=== PATIENT | female | born 1935 | race Caucasian/White ===

== ENCOUNTER 2017-02-03 14:22 | Emergency (ER) | payer OTHER ==
[~2017-02-03] VITALS: Ht 154.9 cm; Wt 82.2 kg
[~2017-02-03 14:22] MED LIST: ASPI-232 PO; FENT12DI6 TD; FENT25DI2 TD; LORA-741 PO; METO25TA56 PO; SOTA80TA PO
[2017-02-03 14:30] VITALS: TEMP 36.5; Ht 154.9 cm; Wt 82.2 kg
--- NOTE | 2017-02-03 14:52 | EMERGENCY ROOM VISIT NOTE ---
History Report prepared by Bina: David Dudley Under the Supervision of: Dr. Isaiah Padron M.D. First contact with patient: 14:37 Chief Complaint: EYE ASSESSMENT Stated Complaint: EYE, SWOLLEN, RED, PAIN History of Present Illness The patient is a 81 year old female who presents to the Emergency Room with complaints of constant right eye redness and pain starting yesterday afternoon. The patient notes that the pain is worse when she moves her eyeball, and she additionally states that she is having some vision trouble in that eye and eye watering. The patient reports that she was raking her leaves yesterday, and then afterwards it felt like there was sand in her eye, and it got more painful and red. She denies any itching, headaches, numbness, and weakness. She states that she takes aspirin, and she wears glasses though no contacts. The patient notes that she had an eye repair in 2007 in that same eye. She denies any known allergies and history of glaucoma. The patient was seen at [facility] and sent to the ED for evaluation. Source of History: patient Onset: yesterday afternoon Position: eye (right) Quality: other (redness) Timing: constant Modifying Factors (Worsening): other (eye movement) Associated Symptoms: No headache, No weakness, No numbness Review of Systems See HPI for pertinent positives & negatives. A total of 10 systems reviewed and were otherwise negative. Past Medical & Surgical Medical Problems: (1) CKD (chronic kidney disease), stage III (2) Depressive disorder (3) History of basal cell carcinoma (4) History of squamous cell carcinoma (5) HTN (hypertension) (6) Hyperlipidemia (7) Pacemaker (8) Paroxysmal atrial fibrillation (9) Tachy-brenden syndrome Surgical Problems: (1) History of appendectomy (2) History of cataract surgery (3) History of cholecystectomy (4) History of meniscectomy of right knee (5) History of tonsillectomy (6) History of total hysterectomy Old medical records were reviewed. Nurse's notes were reviewed and I agree with. Social History Smoking Status: Never Smoker Marital Status: Housing Status: lives with family Occupation Status: retired Current/Historical Medications Scheduled Aspirin (Aspir-81), 81 MG PO DAILY Atorvastatin (Lipitor), 40 MG PO DAILY Escitalopram (Lexapro), 10 MG PO DAILY Losartan Potassium (Cozaar), 25 MG PO DAILY Metoprolol Tartrate (Lopressor) (Lopressor), 25 MG PO BID Sotalol Hcl (Sotalol Hcl), 80 MG PO BID Scheduled PRN Lorazepam (Ativan), 0.5 MG PO Q6H PRN for Sleep Allergies Coded Allergies: Codeine (Verified Allergy, Severe, ANAPHYLAXIS, 04/27/14) Nitrofurantoin (Verified Allergy, Severe, SWELLING AND HIVES, 04/27/14) Nitroglycerin (Verified Adverse Reaction, Intermediate, SHORTNESS OF BREATH, 04/27/14) VAGAL RESPONSE - MARKED DROP ON BLOOD PRESSURE & HEART RATE, DIAPHORESIS AND "FEELING LIKE PASSING OUT" Physical Exam Vital Signs Date Time Temp Pulse Resp B/P (MAP) Pulse Ox O2 Delivery O2 Flow Rate FiO2 02/03/17 16:35 61 20 140/73 97 02/03/17 14:30 36.5 89 18 125/73 97 Room Air Right Eye Acuity: 20/30 Left Eye Acuity: 20/30 Physical Exam General: Non-ill appearing older female in no acute distress. HEENT: Normal cephalic atraumatic. Diffuse redness and swelling of the conjunctiva on the right. No proptosis, no hyphema, no redness of the lids, no tenderness over the temporal artery. Pupils are equal round and reactive to light. Extraocular movements are intact. Oropharynx is pink with moist mucous membranes. No swelling of the mouth lips or tongue. Neck: Supple with a midline trachea. No meningeal signs or stiffness, no JVD or bruits. No Stridor. Chest: Clear to auscultation bilaterally. No wheezes or rhonchi. No increased work of breathing. Heart: regular rate and rhythm. Abdomen: Soft nontender, nondistended without rebound guarding or rigidity. Extremities: No cyanosis clubbing or edema. No calf tenderness or assymetry Spine/Back. Non tender to palpation. No CVA tenderness Skin: Good turgor without rashes. Neurologic exam: Cranial nerves two through 12 are intact. Motor and sensation are intact and symmetrical throughout. Medical Decision & Procedures Medications Administered Medications (Trade) Dose Ordered Sig/Kyler Route Start Time Stop Time Status Last Admin Dose Admin Tobramycin/ Dexamethasone (Tobradex Oph Susp) 1 drops ONE STAT OP 02/03/17 16:00 02/03/17 16:02 DC 02/03/17 16:00 1 DROPS ED Course 1437: Past medical records reviewed. The patient was evaluated in room B9, and a complete history and physical examination were performed. 1535: Alcaine 0.5% Oph Soln 2 drops OP 1556: I discussed the patient's case with Dr. Dumont, Ophthalmology, and he said to use TobraDex, Zaditor, artificial tears, and a compress. 1600: TobraDex Oph Soln 1 Drop OP 1615: Upon reevaluation, the patient is resting comfortably. I discussed the results and treatment plan with her. She verbalized agreement of the treatment plan. The patient was discharged home. Medical Decision Differentials include, but are not limited to; infection, allergies, glaucoma, abrasion. This patient comes in as described above. She has injection of her right conjunctiva with chemosis. She has normal visual acuity in both eyes . she does not wear contacts. There is no trauma although she was raking leaves yesterday and did get some dust in her eye yesterday. I think this could be more of an allergic chemosis type picture. I did check her intraocular pressure using a puff tonometer and was 11 in both eyes bilaterally and therefore does not have glaucoma. Her pupils are regular I looked at under slit lamp there is no anterior lesions there is no dendritic lesions. I did discuss case with Dr. Crain and he recommends putting on TobraDex 4 times a day which I did and also she can use [id number] antihistamines Zaditor for twice a day as well as use artificial tears and cool compresses. They will follow-up with her Sunday. she's return to the weekend if worsening symptoms, any new problems or concerns. Medication Reconcilliation Current Medication List: was personally reviewed by me Blood Pressure Screening Patient's blood pressure: Normal blood pressure Consults Time Called: 1549 Consulting Physician: Dr. Dumont, Ophthalmology Returned Call: [phone] I discussed the patient's case with Dr. Dumont, Ophthalmology, and he said to use TobraDex, Zaditor, artificial tears, and a compress. Impression Primary Impression: [place] eye Additional Impression: Chemosis Scribe Attestation The scribe's documentation has been prepared under my direction and personally reviewed by me in its entirety. I confirm that the note above accurately reflects all work, treatment, procedures, and medical decision making performed by me. Departure Information Dispostion Home / Self-Care Referrals No Doctor, Assigned (PCP) Forms HOME CARE DOCUMENTATION FORM, IMPORTANT VISIT INFORMATION, WORK / SCHOOL INSTRUCTIONS Patient Instructions My [facility] Additional Instructions Use cool compresses and refrigerated artificial tears as needed Use Tobradex- 1 drop, 4 times a day. Use Zaditor (Over the counter anti-histamine) twice a day Follo-up with Dr. Arora on Sunday for recheck Return if: Increasing pain, worsening of symptoms, fever or chills, any new problems or concerns Problem Qualifiers
[2017-02-03] MEDS ORDERED: LOSA25TA18 PO (15:12)
[2017-02-03] MEDS ORDERED: ESCI10TA17 PO (15:12)
[2017-02-03] MEDS ORDERED: ATOR-24 PO (15:12)
[2017-02-03] MEDS ORDERED: PROPARACAINE HCL 0.5% OP SOLN 15 ML BTL OP STA (15:35)
[2017-02-03] MEDS ORDERED: PROPARACAINE HCL 0.5% OP SOLN 15 ML BTL ONE (15:37)
[2017-02-03] MEDS ORDERED: TOBRAMYCIN/DEXAMETHASONE OPH SUSP 2.5 ML BTL OP STA (16:00)
[2017-02-03 16:35] VITALS: BP 140/73; PULSE 61; O2SAT 97
== END 2017-02-03 16:37 | disposition home or self-care (01) ==
LOC: C.EDB 14:23
DX: H10.021 Other mucopurulent conjunctivitis, right eye (principal); H11.421 Conjunctival edema, right eye; N18.3 Chronic kidney disease, stage 3 (moderate); F32.9 Major depressive disorder, single episode, unspecified; I12.9 Hypertensive chronic kidney disease with stage 1 through stage 4 chronic kidney disease, or unspecified chronic kidney disease; E78.5 Hyperlipidemia, unspecified; Z95.0 Presence of cardiac pacemaker; I48.0 Paroxysmal atrial fibrillation; I49.5 Sick sinus syndrome; Z85.828 Personal history of other malignant neoplasm of skin; Z79.82 Long term (current) use of aspirin; Z79.899 Other long term (current) drug therapy

== ENCOUNTER 2019-01-11 20:06 | Observation (INO) ==
[2019-01-11] MEDS ORDERED: SODIUM CHLORIDE 0.9% 500 ML IV SCH (20:15)
[2019-01-11 20:22] LABS: Basophils # (auto) 0.01 K/uL (0-0.2); Basophils % (auto) 0.1 %; Eosinophils # (auto) 0.08 K/uL (0-0.5); Eosinophils % (auto) 1.2 %; Hematocrit (blood only) 42.4 % (37-47); Hemoglobin 13.8 g/dL (12.0-16.0); Immature Granulocytes # (auto) 0.01 K/uL (0.00-0.02); Immature Granulocytes % (auto) 0.1 %; Lymphocytes # (auto) 1.93 K/uL (1.2-3.4); Lymphocytes % (auto) 28.8 %; Mean Corpuscular Hgb Conc 32.5 g/dL (32-36); Mean Corpuscular Volume 95.3 fL (80-100); Mean Platelet Volume 9.1 fL (7.4-10.4); Monocytes # (auto) 0.64 K/uL (0.11-0.59); Monocytes % (auto) 9.6 %; Neutrophils # (auto) 4.03 K/uL (1.4-6.5); Neutrophils % (auto) 60.2 %; Platelet Count 247 K/uL (130-400); RDW Coefficient of Variation 13.8 % (11.5-14.5); RDW Standard Deviation 48.4 fL (36.4-46.3); Red Blood Count 4.45 M/uL (4.2-5.4)
[2019-01-11 20:34] LABS: Partial Thromboplastin Ratio 0.9; Partial Thromboplastin Time 25.4 Seconds (21.0-31.0); Prothrombin Time 10.3 Seconds (9.0-12.0)
[2019-01-11 20:39] LABS: Alanine Aminotransferase 24 U/L (12-78); Albumin Level 3.4 gm/dl (3.4-5.0); Aspartate Aminotransferase 22 U/L (15-37); BUN Creatinine Ratio 17.5 (10-20); Blood Urea Nitrogen 18 mg/dl (7-18); Calcium 8.8 mg/dl (8.5-10.1); Carbon Dioxide 27 mmol/L (21-32); Chloride 107 mmol/L (98-107); Creatinine Clr Calc Pharmacy 40.2 ml/min; Est GFR (African American) 56.7; Glucose 121 mg/dl (70-99); Magnesium 2.1 mg/dl (1.8-2.4); Potassium 4.2 mmol/L (3.5-5.1); Sodium 140 mmol/L (136-145)
--- NOTE | 2019-01-11 20:39 | XRay Report ---
XR chest 1V portable CLINICAL HISTORY: weakness COMPARISON STUDY: Chest radiograph June 26, 2013. FINDINGS: Lung volumes are normal. Lungs are clear. There is no pneumothorax or pleural effusion. Mod erate cardiomegaly is noted. Mediastinal contours are normal. There is no evidence for pulmonary marjan a. Dual-lead left subclavian pacemaker is unchanged in position. IMPRESSION: 1. No acute cardiopulmonary findings. 2. Moderate cardiomegaly. Electronically signed by: Refugio Cherry M.D. 01/11/2019 8:37 PM
--- NOTE | 2019-01-11 20:42 | Emergency Department Note ---
Entered by Sridhar Samayoa acting as a scribe for History of Present Illness General Chief complaint: Shortness of Breath/Dyspnea Stated complaint: SOB Source: patient Mode of arrival: EMS Limitations: no limitations History of Present Illness Onset (ago): day(s) (today) Location: chest Pain Consistency: + constant Quality: + constant Associated symptoms: + denies other symptoms (breathing problems, walking problems) and + other (diarrhea); no chest pain and no nausea/vomiting Treatments prior to arrival: other (Cardizem) The patient is a 83 year old female who presents to the Emergency Room with complaints of constant palpitations starting earlier today. The patient states Dr. Eid put a pacemaker in her 4 years ago. She states she felt weird last night. She notes she woke up this morning and felt lightheaded. She notes she took her BP and it was very low. She states she started to drink fluids but it did not get any better. She notes her HR went up to 118 and her BP went up. She notes her HR stayed in the 118-128 BPM range. She notes she feels very tired right now. She states she does not have SOB when laying down. The patient denies chest pain, nausea, vomiting, problems walking, and breathing problems. The patient states she was driving all day yesterday. She states she had 5 episodes of diarrhea today but denies any black or bloody stools. She notes the last time she saw Dr. Eid was a month ago. 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 Home Medications Home Medications Medication Instructions Recorded Confirmed Type aspirin [Aspir-81] 81 mg PO DAILY 01/11/19 01/11/19 History atorvastatin [Lipitor] 20 mg PO DAILY 01/11/19 01/11/19 History losartan [Cozaar] 12.5 mg PO DAILY 01/11/19 01/11/19 History metoprolol tartrate [Lopressor] 50 mg PO BID 01/11/19 01/11/19 History sotalol [Betapace] 80 mg PO BID 01/11/19 01/11/19 History Allergies Allergy/AdvReac Type Severity Reaction Status Date / Time codeine Allergy Severe ANAPHYLAXIS Verified 01/11/19 21:03 nitrofurantoin Allergy Severe SWELLING Verified 01/11/19 21:03 AND HIVES nitroglycerin AdvReac Intermediate SHORTNESS Verified 01/11/19 21:03 OF BREATH Past Med/Surg History Medical History HTN (hypertension) (Chronic) Hyperlipidemia (Chronic) Pacemaker (Chronic 06/25/13) "dual chamber pacemaker insertion 06/25/13 Dr. Serrano at [facility]" Tachy-brenden syndrome (Chronic) "s/p dual chamber pacemaker insertion 06/25/13 Dr. Serrano at [facility]" Paroxysmal atrial fibrillation (Chronic) CKD (chronic kidney disease), stage III (Chronic) Depressive disorder (Chronic) History of basal cell carcinoma (Chronic) History of squamous cell carcinoma (Chronic) Surgical History History of tonsillectomy (Chronic) History of appendectomy (Chronic) History of total hysterectomy (Chronic) History of cholecystectomy (Chronic) History of cataract surgery (Chronic) History of meniscectomy of right knee (Chronic) Family History Other Family history non-contributory Social History Preferred Language: Burmese Communication Ability: Effective Cattle Dealer Required: No Beliefs That Will Affect Care: None Current Living Situation: Spouse Other Information That Helps Us Care for You: No Feels Safe at Home: Yes Safety Concerns: Feels Safe At This Time Smoking Status: Never smoker Hx Alcohol Use: Yes Alcohol type: wine Hx Substance Use: No Review of Systems See HPI for pertinent positives & negatives. and A total of 10 systems reviewed and were otherwise negative Physical Exam Vital Signs Vital Signs - 24 hr 01/11/19 20:11 01/11/19 20:15 01/11/19 20:31 Temperature 36.6 C Temperature Source Oral Sepsis Recent Fever Within 48 Hours No Sepsis New/Unexplained Change in Mental Status No Sepsis Action Taken by Nursing No Action Required Pulse Rate 90 98 H Respiratory Rate 20 21 Respiratory Effort / Characteristics Non-Labored Spontaneous Respiratory Depth Normal Respiratory Pattern Regular Blood Pressure 122/80 103/64 Blood Pressure Mean 94 77 Pulse Oximetry 98 97 Oxygen Delivery Method Room Air Room Air Room Air 01/11/19 21:00 01/11/19 21:30 01/11/19 21:47 Temperature Temperature Source Sepsis Recent Fever Within 48 Hours Sepsis New/Unexplained Change in Mental Status Sepsis Action Taken by Nursing Pulse Rate 108 H 114 H 108 H Respiratory Rate 20 19 Respiratory Effort / Characteristics Respiratory Depth Respiratory Pattern Blood Pressure 96/62 L 112/81 Blood Pressure Mean 73 91 Pulse Oximetry 98 98 Oxygen Delivery Method Room Air Room Air 01/11/19 22:00 Temperature Temperature Source Sepsis Recent Fever Within 48 Hours Sepsis New/Unexplained Change in Mental Status Sepsis Action Taken by Nursing Pulse Rate 100 H Respiratory Rate 21 Respiratory Effort / Characteristics Respiratory Depth Respiratory Pattern Blood Pressure 131/82 Blood Pressure Mean 98 Pulse Oximetry 99 Oxygen Delivery Method Room Air GENERAL: The patient is awake and alert. She is somewhat anxious appearing but appears comfortable. EYES: The conjunctivae are clear. The pupils are round and reactive. EARS, NOSE, MOUTH AND THROAT: The nose is without any evidence of any deformity. Mucous membranes are moist.Tongue is midline NECK: The neck is nontender and supple. RESPIRATORY: Normal respiratory effort is noted. There is no evidence of wheez ing rhonchi or rales to auscultation. CARDIOVASCULAR: Tachycardic rate with a regular rhythm was noted. No definite murmur was noted. GASTROINTESTINAL: The abdomen is soft. Bowel sounds are present in all quadrants. Abdomen is nontender. MUSCULOSKELETAL/EXTREMITIES: There is no evidence of gross deformity. Full range of motion is noted in the hips and shoulders. SKIN: There is no obvious evidence of any rash. There are no petechiae, pallor or cyanosis noted. NEUROLOGIC: Patient is awake alert and oriented x3. No drift was noted in the upper extremities. Course 2009: The patient was evaluated in room B2, and a complete history and physical examination were performed. 2039: According to the pacemaker device, the patient has not been in A-Fib since June but has been in A-Fib in the last 72 hours with rapid ventricular response. 2113: I reevaluated the patient. I updated the patient on her labs and imaging results. 2019: I discussed the patient's case with Dr. Tessa Fermin [facility] Hospitalist. He will evaluate the patient for further management Administered Medications Lactated Ringer's (Lr) 1,000 mls @ 200 mls/hr IV .Q5H ONE Stop: 01/12/19 02:38 Last Admin: 01/11/19 21:48 Dose: 200 mls/hr Documented by: [id number] Lorazepam (Ativan) 0.25 mg PO HS PRN PRN Reason: Insomnia Stop: 02/10/19 22:59 Last Admin: 01/11/19 23:54 Dose: 0.25 mg Documented by: [id number] Discontinued Medications Sodium Chloride (Nss) 500 mls @ 999 mls/hr IV .Q31M ZACK Stop: 01/11/19 20:45 Last Infusion: 01/11/19 20:47 Dose: 0 mls/hr Documented by: [id number] Admin: 01/11/19 20:15 Dose: 999 mls/hr Documented by: [id number] Digoxin 250 mcg/ Syringe 10 mls @ 2 mls/min IV ONE ONE Stop: 01/11/19 21:49 Last Admin: 01/11/19 21:47 Dose: 2 mls/min Documented by: [id number] Metoprolol Tartrate (Lopressor) 25 mg PO NOW STA Stop: 01/11/19 22:14 Last Admin: 01/11/19 22:24 Dose: 25 mg Documented by: [id number] Medical Decision Making Differential Diagnosis Differential diagnosis includes etiologies such as premature contractions, electrolyte abnormality, cardiac dysrhythmia, thyroid dysfunction, pulmonary embolism, infection, gastrointestinal, as well as others were entertained. Medical Records Attestation: I reviewed the patient's medical records. Home Medications Current Medication List: was personally reviewed by me Laboratory Data Attestation: I reviewed the patient's lab results. Result diagrams: 01/11/19 20:15 01/11/19 20:15 Lab Results 01/11/19 01/11/19 01/11/19 Range/Units 20:15 20:15 20:15 WBC 6.70 (4.8-10.8) K/uL RBC 4.45 (4.2-5.4) M/uL Hgb 13.8 (12.0-16.0) g/dL Hct 42.4 (37-47) % MCV 95.3 (80-100) fL MCH 31.0 (25-34) pg MCHC 32.5 (32-36) g/dL RDW Std Deviation 48.4 H (36.4-46.3) fL RDW Coeff of Kelli 13.8 (11.5-14.5) % Plt Count 247 (130-400) K/uL MPV 9.1 (7.4-10.4) fL Immature Gran % (Auto) 0.1 % Neut % (Auto) 60.2 % Lymph % (Auto) 28.8 % Woodson % (Auto) 9.6 % Eos % (Auto) 1.2 % Baso % (Auto) 0.1 % Immature Gran # (Auto) 0.01 (0.00-0.02) K/uL Neut # (Auto) 4.03 (1.4-6.5) K/uL Lymph # (Auto) 1.93 (1.2-3.4) K/uL Woodson # (Auto) 0.64 H (0.11-0.59) K/uL Eos # (Auto) 0.08 (0-0.5) K/uL Baso # (Auto) 0.01 (0-0.2) K/uL PT 10.3 (9.0-12.0) Seconds INR 1.0 (0.9-1.1) APTT 25.4 (21.0-31.0) Seconds PTT Ratio 0.9 Sodium 140 (136-145) mmol/L Potassium 4.2 (3.5-5.1) mmol/L Chloride 107 (98-107) mmol/L Carbon Dioxide 27 (21-32) mmol/L Anion Gap 5.0 (3-11) BUN 18 (7-18) mg/dl Creatinine 1.04 (0.6-1.2) mg/dl Est Cr Clr Drug Dosing 40.2 ml/min Est GFR ( Amer) 56.7 Est GFR (Non-Af Amer) 49.0 BUN/Creatinine Ratio 17.5 (10-20) Glucose 121 H (70-99) mg/dl Calcium 8.8 (8.5-10.1) mg/dl Magnesium 2.1 (1.8-2.4) mg/dl Total Bilirubin 0.6 (0.2-1) mg/dl AST 22 (15-37) U/L ALT 24 (12-78) U/L Alkaline Phosphatase 98 (45-117) U/L Troponin I < 0.015 (0-0.045) ng/ml Total Protein 6.8 (6.4-8.2) gm/dl Albumin 3.4 (3.4-5.0) gm/dl Globulin 3.4 (2.5-4.0) gm/dl Albumin/Globulin Ratio 1.0 (0.9-2) TSH 0.795 (0.300-4.500) uIu/ml Urine Color Urine Appearance (Clear) Urine pH (4.5-7.5) Ur Specific [place] (1.000-1.030) Urine Protein (Negative) Urine Glucose (UA) (Negative) Urine Ketones (Negative) Urine Blood (Negative) Urine Nitrite (Negative) Urine Bilirubin (Negative) Urine Urobilinogen (Negative) Ur Leukocyte Esterase (Negative) 01/11/19 Range/Units 20:50 WBC (4.8-10.8) K/uL RBC (4.2-5.4) M/uL Hgb (12.0-16.0) g/dL Hct (37-47) % MCV (80-100) fL MCH (25-34) pg MCHC (32-36) g/dL RDW Std Deviation (36.4-46.3) fL RDW Coeff of Kelli (11.5-14.5) % Plt Count (130-400) K/uL MPV (7.4-10.4) fL Immature Gran % (Auto) % Neut % (Auto) % Lymph % (Auto) % Woodson % (Auto) % Eos % (Auto) % Baso % (Auto) % Immature Gran # (Auto) (0.00-0.02) K/uL Neut # (Auto) (1.4-6.5) K/uL Lymph # (Auto) (1.2-3.4) K/uL Woodson # (Auto) (0.11-0.59) K/uL Eos # (Auto) (0-0.5) K/uL Baso # (Auto) (0-0.2) K/uL PT (9.0-12.0) Seconds INR (0.9-1.1) APTT (21.0-31.0) Seconds PTT Ratio Sodium (136-145) mmol/L Potassium (3.5-5.1) mmol/L Chloride (98-107) mmol/L Carbon Dioxide (21-32) mmol/L Anion Gap (3-11) BUN (7-18) mg/dl Creatinine (0.6-1.2) mg/dl Est Cr Clr Drug Dosing ml/min Est GFR ( Amer) Est GFR (Non-Af Amer) BUN/Creatinine Ratio (10-20) Glucose (70-99) mg/dl Calcium (8.5-10.1) mg/dl Magnesium (1.8-2.4) mg/dl Total Bilirubin (0.2-1) mg/dl AST (15-37) U/L ALT (12-78) U/L Alkaline Phosphatase (45-117) U/L Troponin I (0-0.045) ng/ml Total Protein (6.4-8.2) gm/dl Albumin (3.4-5.0) gm/dl Globulin (2.5-4.0) gm/dl Albumin/Globulin Ratio (0.9-2) TSH (0.300-4.500) uIu/ml Urine Color Yellow Urine Appearance Clear (Clear) Urine pH 7.0 (4.5-7.5) Ur Specific [place] 1.006 (1.000-1.030) Urine Protein Negative (Negative) Urine Glucose (UA) Negative (Negative) Urine Ketones Negative (Negative) Urine Blood Negative (Negative) Urine Nitrite Negative (Negative) Urine Bilirubin Negative (Negative) Urine Urobilinogen Negative (Negative) Ur Leukocyte Esterase Negative (Negative) Imaging Data Radiologist's Impression: Radiology results as stated below per my review and the radiologist's interpretation: XR chest 1V portable CLINICAL HISTORY: weakness COMPARISON STUDY: Chest radiograph June 26, 2013. FINDINGS: Lung volumes are normal. Lungs are clear. There is no pneumothorax or pleural effusion. Moderate cardiomegaly is noted. Mediastinal contours are normal. There is no evidence for pulmonary edema. Dual-lead left subclavian pacemaker is unchanged in position. IMPRESSION: 1. No acute cardiopulmonary findings. 2. Moderate cardiomegaly. Electronically signed by: Refugio Cherry M.D. 01/11/2019 8:37 XR chest 1V portable CLINICAL HISTORY: weakness COMPARISON STUDY: Chest radiograph June 26, 2013. FINDINGS: Lung volumes are normal. Lungs are clear. There is no pneumothorax or pleural effusion. Moderate cardiomegaly is noted. Mediastinal contours are normal. There is no evidence for pulmonary edema. Dual-lead left subclavian pacemaker is unchanged in position. IMPRESSION: 1. No acute cardiopulmonary findings. 2. Moderate cardiomegaly. Electronically signed by: Refugio Cherry M.D. 01/11/2019 8:37 PM ECG Data Attestation: I personally reviewed and interpreted this ECG as follows: Indication: palpitations Rate (beats per minute): 92 Rhythm: atrial fibrillation Findings: + other (ventricular paced beats with fusion beats noted. ) and + T- wave inversion (anteriorly) Comparison ECG Date: from (04/15/14) Change: the following changes noted (Atrial paced rhythm has been replaced with ventricular paced beats) Blood Pressure Blood Pressure Findings: Low blood pressure Blood Pressure Disposition: further management by hospitalist DEION Pulido The patient is an 83-year-old female who presented to the emergency department for an evaluation of palpitations and dyspnea on exertion. The patient has a history of paroxysmal atrial fibrillation and has a pacemaker. She presented to the emergency department with atrial fibrillation and rapid ventricular response. She was treated with Cardizem and IV fluids. She was reevaluated multiple times. I did discuss the patient's laboratory and radiographic studies with her. Her tachycardia improved and she was feeling much better. The patient currently does not take anticoagulation because of a history of bleeding. I discussed the patient's condition with the on-call [facility] hospitalist. Given the extent of her symptoms while she was in rapid atrial fibrillation I do feel she may be a better candidate for inpatient management. I did have the patient's pacemaker interrogated and it does appear that she has had multiple episodes of A. fib with RVR over the last 16 to 20 hours. It appe ars according to her pacemaker that she has not had episodes similar to this since June 2018. Impression & Plan Atrial fibrillation with RVR, LINARES (dyspnea on exertion), Palpitations Discharge Plan Visit Data *Final* Discharge Date/Time: 01/11/19 22:36 Chief Complaint: Shortness of Breath/Dyspnea Stated Complaint: SOB ED Provider: Al Humphrey Discharge Problem: Atrial fibrillation with RVR, LINARES (dyspnea on exertion), Palpitations Patient Disposition: Admitted As Inpatient Discharge Instructions Interventions: ED Discharge Assessment Last Done: 01/11/19 22:36 The scribe's documentation has been prepared under my direction and personally reviewed by me in its entirety. I confirm that the note above accurately reflects all work, treatment, procedures, and medical decision making performed by me.
[2019-01-11 20:49] LABS: Alkaline Phosphatase 98 U/L (45-117); Bilirubin,Total 0.6 mg/dl (0.2-1); Globulin 3.4 gm/dl (2.5-4.0); Thyroid Stimulating Hormone 0.795 uIu/ml (0.300-4.500); Total Protein 6.8 gm/dl (6.4-8.2); Troponin I < 0.015 ng/ml (0-0.045)
[2019-01-11 21:07] LABS: Appearance Urine Clear (Clear); Bilirubin Urine Negative (Negative); Blood Urine Negative (Negative); Color Urine Yellow; Glucose Urine UA Negative (Negative); Ketones Urine Negative (Negative); Leukocyte Esterase Urine Negative (Negative); Nitrite Urine Negative (Negative); Protein Urine Negative (Negative); Specific Gravity Urine 1.006 (1.000-1.030); Urobilinogen Urine Negative (Negative)
[2019-01-11] MEDS ORDERED: LACTATED RINGER'S 1,000 ML IV ONE (21:39)
[2019-01-11] MEDS ORDERED: DIGOXIN 250 MCG in SYRINGE 9 ML IV ONE (21:45)
--- NOTE | 2019-01-11 22:10 | History & Physical Report ---
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 difficile Anxiety hypertension, erratic BP at home hyperlipidemia on statin Rx OBS PCU Facilitate home Sotalol and Lopressor meds, titrate Lopressor IVF, stool C. difficile Anxiolytic as needed Update TTE, Cardiology consult RE recurrent A. fib DVT prophylaxis. Lovenox subcu Full code History of Present Illness Chief Complaint: -Palpitations Primary Care Provider: Eddie Graves MD History obtained from patient, family, and records. 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 Recent confinement April 2014 under [facility] service for lumbar spine laminectomy. Last night patient noted palpitations around bedtime, feeling lightheaded, S OB on exertion. No chest pain, no cough symptoms. Patient compliant with home cardiac medications. SBP somewhat low last night in the 90s as per patient. Patient unable to sleep. 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 This morning patient had watery diarrhea, with nausea, no emesis, no abdominal pain. No fever, no chills. No known sick contacts, recent travel, or recent antibiotic Rx. SBP is higher than usual at home 170- 180s as per patient At the ER, patient noted to be in rapid A. fib. Cardiac rate 115. Medical History as above Surgical History : Neck surgery, knee surgery, PPM, appendectomy, tonsillectomy, cataract surgery, cholecystectomy, hysterectomy Family History : Breast cancer, diabetes, heart disease, stroke Personal/Social history : Non-smoker, no EtOH intake, retired businesswoman Allergies Allergy/AdvReac Type Severity Reaction Status Date / Time codeine Allergy Severe ANAPHYLAXIS Verified 01/11/19 21:03 nitrofurantoin Allergy Severe SWELLING Verified 01/11/19 21:03 AND HIVES nitroglycerin AdvReac Intermediate SHORTNESS Verified 01/11/19 21:03 OF BREATH Home Medications Home Medications Medication Instructions Recorded Confirmed Type aspirin [Aspir-81] 81 mg PO DAILY 01/11/19 01/11/19 History atorvastatin [Lipitor] 20 mg PO DAILY 01/11/19 01/11/19 History losartan [Cozaar] 12.5 mg PO DAILY 01/11/19 01/11/19 History metoprolol tartrate [Lopressor] 50 mg PO BID 01/11/19 01/11/19 History sotalol [Betapace] 80 mg PO BID 01/11/19 01/11/19 History Past Med/Surg History Medical History HTN (hypertension) (Chronic) Hyperlipidemia (Chronic) Pacemaker (Chronic 06/25/13) "dual chamber pacemaker insertion 06/25/13 Dr. Serrano at [facility]" Tachy-brenden syndrome (Chronic) "s/p dual chamber pacemaker insertion 06/25/13 Dr. Serrano at [facility]" Paroxysmal atrial fibrillation (Chronic) CKD (chronic kidney disease), stage III (Chronic) Depressive disorder (Chronic) History of basal cell carcinoma (Chronic) History of squamous cell carcinoma (Chronic) Surgical History History of tonsillectomy (Chronic) History of appendectomy (Chronic) History of total hysterectomy (Chronic) History of cholecystectomy (Chronic) History of cataract surgery (Chronic) History of meniscectomy of right knee (Chronic) Family History Other Family history non-contributory Social History Preferred Language: Croatian Communication Ability: Effective Making Department Preparer Required: No Beliefs That Will Affect Care: None Current Living Situation: Spouse Other Information That Helps Us Care for You: No Feels Safe at Home: Yes Safety Concerns: Feels Safe At This Time Smoking Status: Never smoker Hx Alcohol Use: Yes Alcohol type: wine Hx Substance Use: No Review of Systems Review of Systems: As per HPI, all 10 systems reviewed, all other ROS negative Physical Exam Physical Exam: GENERAL: Comfortable, obese, slightly anxious, no respiratory distress SKIN: Normal color, warm HEENT: [place] palpebral conjunctivae, no ptosis, dry buccal mucosa NECK : Supple, short neck, no tenderness CHEST : CTA, no tenderness HEART : Tachycardic, irregular, systolic murmur ABDOMEN: Some distention, nontender EXTREMITIES : No LE swelling/tenderness, no other conspicuous deformities noted NEUROLOGIC : Coherent, no facial asymmetry, no other gross focality Results & Data Vital Signs (Past 12 Hours) Vital Signs Temp Pulse Resp BP Pulse Ox 01/11/19 22:00 100 H 21 131/82 99 01/11/19 21:47 108 H 01/11/19 21:30 114 H 19 112/81 98 01/11/19 21:00 108 H 20 96/62 L 98 01/11/19 20:31 98 H 21 103/64 97 01/11/19 20:15 36.6 C 90 20 122/80 98 Laboratory Results Laboratory Results WBC 6.70 K/uL (4.8-10.8) 01/11/19 20:15 RBC 4.45 M/uL (4.2-5.4) 01/11/19 20:15 Hgb 13.8 g/dL (12.0-16.0) 01/11/19 20:15 Hct 42.4 % (37-47) 01/11/19 20:15 MCV 95.3 fL (80-100) 01/11/19 20:15 MCH 31.0 pg (25-34) 01/11/19 20:15 MCHC 32.5 g/dL (32-36) 01/11/19 20:15 RDW Std Deviation 48.4 fL (36.4-46.3) H 01/11/19 20:15 RDW Coeff of Kelli 13.8 % (11.5-14.5) 01/11/19 20:15 Plt Count 247 K/uL (130-400) 01/11/19 20:15 MPV 9.1 fL (7.4-10.4) 01/11/19 20:15 Immature Gran % (Auto) 0.1 % 01/11/19 20:15 Neut % (Auto) 60.2 % 01/11/19 20:15 Lymph % (Auto) 28.8 % 01/11/19 20:15 [place] % (Auto) 9.6 % 01/11/19 20:15 Eos % (Auto) 1.2 % 01/11/19 20:15 Baso % (Auto) 0.1 % 01/11/19 20:15 Immature Gran # (Auto) 0.01 K/uL (0.00-0.02) 01/11/19 20:15 Neut # (Auto) 4.03 K/uL (1.4-6.5) 01/11/19 20:15 Lymph # (Auto) 1.93 K/uL (1.2-3.4) 01/11/19 20:15 [place] # (Auto) 0.64 K/uL (0.11-0.59) H 01/11/19 20:15 Eos # (Auto) 0.08 K/uL (0-0.5) 01/11/19 20:15 Baso # (Auto) 0.01 K/uL (0-0.2) 01/11/19 20:15 PT 10.3 Seconds (9.0-12.0) 01/11/19 20:15 INR 1.0 (0.9-1.1) 01/11/19 20:15 APTT 25.4 Seconds (21.0-31.0) 01/11/19 20:15 PTT Ratio 0.9 01/11/19 20:15 Sodium 140 mmol/L (136-145) 01/11/19 20:15 Potassium 4.2 mmol/L (3.5-5.1) 01/11/19 20:15 Chloride 107 mmol/L (98-107) 01/11/19 20:15 Carbon Dioxide 27 mmol/L (21-32) 01/11/19 20:15 Anion Gap 5.0 (3-11) 01/11/19 20:15 BUN 18 mg/dl (7-18) 01/11/19 20:15 Creatinine 1.04 mg/dl (0.6-1.2) 01/11/19 20:15 Est Cr Clr Drug Dosing 40.2 ml/min 01/11/19 20:15 Est GFR ( Amer) 56.7 01/11/19 20:15 Est GFR (Non-Af Amer) 49.0 01/11/19 20:15 BUN/Creatinine Ratio 17.5 (10-20) 01/11/19 20:15 Glucose 121 mg/dl (70-99) H 01/11/19 20:15 Calcium 8.8 mg/dl (8.5-10.1) 01/11/19 20:15 Magnesium 2.1 mg/dl (1.8-2.4) 01/11/19 20:15 Total Bilirubin 0.6 mg/dl (0.2-1) 01/11/19 20:15 AST 22 U/L (15-37) 01/11/19 20:15 ALT 24 U/L (12-78) 01/11/19 20:15 Alkaline Phosphatase 98 U/L (45-117) 01/11/19 20:15 Troponin I < 0.015 ng/ml (0-0.045) 01/11/19 20:15 Total Protein 6.8 gm/dl (6.4-8.2) 01/11/19 20:15 Albumin 3.4 gm/dl (3.4-5.0) 01/11/19 20:15 Globulin 3.4 gm/dl (2.5-4.0) 01/11/19 20:15 Albumin/Globulin Ratio 1.0 (0.9-2) 01/11/19 20:15 TSH 0.795 uIu/ml (0.300-4.500) 01/11/19 20:15 Urine Color Yellow 01/11/19 20:50 Urine Appearance Clear (Clear) 01/11/19 20:50 Urine pH 7.0 (4.5-7.5) 01/11/19 20:50 Ur Specific [place] 1.006 (1.000-1.030) 01/11/19 20:50 Urine Protein Negative (Negative) 01/11/19 20:50 Urine Glucose (UA) Negative (Negative) 01/11/19 20:50 Urine Ketones Negative (Negative) 01/11/19 20:50 Urine Blood Negative (Negative) 01/11/19 20:50 Urine Nitrite Negative (Negative) 01/11/19 20:50 Urine Bilirubin Negative (Negative) 01/11/19 20:50 Urine Urobilinogen Negative (Negative) 01/11/19 20:50 Ur Leukocyte Esterase Negative (Negative) 01/11/19 20:50 Diagnostic Findings Chest x-ray : Moderate cardiomegaly EKG as per my interpretation : Rate 90, paced rhythm
[2019-01-11] MEDS ORDERED: METOPROLOL TARTRATE 50 MG TAB PO STA (22:13)
[2019-01-11] MEDS ORDERED: LORazepam 0.25 MG/0.5 ML VIAL IV PRN (23:00)
[2019-01-11] MEDS ORDERED: PROMETHAZINE HCL 12.5 MG in SODIUM CHLORIDE 0.9% 50 ML IV PRN (23:00)
[2019-01-11] MEDS ORDERED: LORazepam 0.5 MG TAB PO PRN (23:00)
[2019-01-11] MEDS ORDERED: ACETAMINOPHEN 325 MG TAB PO PRN (23:00)
[2019-01-11] MEDS ORDERED: TRAMADOL HCL 50 MG TABLET PO PRN (23:00)
[2019-01-12 05:47] LABS: Basophils # (auto) 0.01 K/uL (0-0.2); Basophils % (auto) 0.2 %; Eosinophils # (auto) 0.08 K/uL (0-0.5); Eosinophils % (auto) 1.2 %; Hematocrit (blood only) 37.9 % (37-47); Hemoglobin 12.4 g/dL (12.0-16.0); Immature Granulocytes # (auto) 0.01 K/uL (0.00-0.02); Immature Granulocytes % (auto) 0.2 %; Lymphocytes # (auto) 2.42 K/uL (1.2-3.4); Lymphocytes % (auto) 37.1 %; Mean Corpuscular Hemoglobin 30.8 pg (25-34); Mean Corpuscular Hgb Conc 32.7 g/dL (32-36); Mean Corpuscular Volume 94.3 fL (80-100); Mean Platelet Volume 8.7 fL (7.4-10.4); Monocytes # (auto) 0.54 K/uL (0.11-0.59); Monocytes % (auto) 8.3 %; Neutrophils # (auto) 3.46 K/uL (1.4-6.5); Platelet Count 220 K/uL (130-400); RDW Coefficient of Variation 13.7 % (11.5-14.5); RDW Standard Deviation 47.2 fL (36.4-46.3); Red Blood Count 4.02 M/uL (4.2-5.4); White Blood Count 6.52 K/uL (4.8-10.8)
[2019-01-12 05:56] LABS: Partial Thromboplastin Ratio 0.9; Partial Thromboplastin Time 25.4 Seconds (21.0-31.0)
[2019-01-12 06:30] LABS: BUN Creatinine Ratio 17.5 (10-20); Calcium 8.6 mg/dl (8.5-10.1); Creatinine Clr Calc Pharmacy 46.6 ml/min; Est GFR (African American) 66.7; Est GFR (Non-African American) 57.5; Potassium 4.2 mmol/L (3.5-5.1)
--- NOTE | 2019-01-12 07:31 | Hospitalist Progress Note ---
Date of Service January 12, 2019 Assessment & Plan (1) Atrial fibrillation with RVR: Hx of SSS s/p PPM not on anticoagulation secondary to history of rectus sheath hematoma TSH wnl K, Mg wnl Echo - right atrium is markedly dilated, so is left atrium, EF 60 to 65%, RV systolic function normal, LV systolic function normal, moderate mitral regurg. Cardiology consulted, started dilt drip, and IV heparin, cont. home sotalol - rate much better controlled now - cont. to closely monitor - discussed risks/benefits of anticoagulation vs. holding ac (2) HTN (hypertension): No current issues HTN at goal, in the setting of Afib will cont. to monitor closely (3) Hyperlipidemia: Cont. home atorvastatin (4) Depressive disorder: Pt is anxious and teary, says she always "has to take care of everything" -takes care of her -no chronic meds/ or therapy -at this time not interested in talking to a professional, says talking w/daughter and sister helps -consider psychotherapy as outpt -will cont. to monitor, prn med management (5) DVT prophylaxis: - currently on IV heparin (for Afib) Code status: Full code Subjective Patient is sitting up in bed, in no acute distress, comfortable however she feels little anxious/teary. Denies any chest pain, palpitations, d izziness/lightheadedness, shortness of breath. She says that she felt very lightheaded when she first arrived to the hospital however that has since resolved. She also denies any fevers, chills, nausea, vomiting,recent illness. Review of Systems Constitutional: no fever and no chills Respiratory: no cough and no dyspnea Cardiovascular: no chest pain and no palpitations Gastrointestinal: no abdominal pain, no nausea and no vomiting Psychiatric: + anxiety Physical Exam Physical Exam: Elderly female sitting up in bed, in no acute distress Constitutional: well developed and well nourished; no acute distress Eyes: PERRL, conjunctivae normal, anicteric sclerae ENMT: external ear and nose normal, oropharynx normal Neck: Supple, no JVD Respiratory: normal respiratory effort, lungs clear to auscultation Auscultation: no crackles, no rhonchi and no wheezes Cardiovascular: Heart Sounds: no gallop and no murmur Irregularly irregular Chest (Breasts): Chest: normal inspection of chest Gastrointestinal (Abdomen): Inspection/Auscultation: abdomen normal to inspection and normal bowel sounds; abdomen not distended Percussion/Palpation: abdomen soft; abdomen nontender Musculoskeletal: Head/Neck/Chest: normocephalic and head atraumatic Extremities: extremities normal to inspection Skin: no rashes, warm and dry Neurologic: PERRL, EOMI, accommodation nl, no face palsy, no dysarthria Psychiatric: Orientation: alert and oriented x 3 Speech: normal rate/rhythm/volume of speech Affect: + anxious affect Genitourinary: no CVA tenderness Lymphatic: no lymphedema and no cervical lymphadenopathy Results & Data Vital Signs (Past 12 Hours) Vital Signs Temp Pulse Pulse Resp BP BP BP 01/12/19 06:22 36.5 C 110 H 20 119/73 01/12/19 03:49 36.7 C 100 H 20 107/72 01/11/19 23:00 01/11/19 22:50 36.4 C L 85 20 142/85 H 01/11/19 22:00 100 H 21 131/82 01/11/19 21:47 108 H 01/11/19 21:30 114 H 19 112/81 01/11/19 21:00 108 H 20 96/62 L 01/11/19 20:31 98 H 21 103/64 01/11/19 20:15 36.6 C 90 20 122/80 Pulse Ox Pulse Ox 01/12/19 06:22 97 01/12/19 03:49 97 01/11/19 23:00 98 01/11/19 22:50 98 01/11/19 22:00 99 01/11/19 21:47 01/11/19 21:30 98 01/11/19 21:00 98 01/11/19 20:31 97 01/11/19 20:15 98 Laboratory Results 01/12/19 01/12/19 01/12/19 Range/Units 05:31 05:31 05:31 WBC 6.52 (4.8-10.8) K/uL RBC 4.02 L (4.2-5.4) M/uL Hgb 12.4 (12.0-16.0) g/dL Hct 37.9 (37-47) % MCV 94.3 (80-100) fL MCH 30.8 (25-34) pg MCHC 32.7 (32-36) g/dL RDW Std Deviation 47.2 H (36.4-46.3) fL RDW Coeff of Kelli 13.7 (11.5-14.5) % Plt Count 220 (130-400) K/uL MPV 8.7 (7.4-10.4) fL Immature Gran % (Auto) 0.2 % Neut % (Auto) 53.0 % Lymph % (Auto) 37.1 % [place] % (Auto) 8.3 % Eos % (Auto) 1.2 % Baso % (Auto) 0.2 % Immature Gran # (Auto) 0.01 (0.00-0.02) K/uL Neut # (Auto) 3.46 (1.4-6.5) K/uL Lymph # (Auto) 2.42 (1.2-3.4) K/uL [place] # (Auto) 0.54 (0.11-0.59) K/uL Eos # (Auto) 0.08 (0-0.5) K/uL Baso # (Auto) 0.01 (0-0.2) K/uL PT (9.0-12.0) Seconds INR (0.9-1.1) APTT 25.4 (21.0-31.0) Seconds PTT Ratio 0.9 Sodium 143 (136-145) mmol/L Potassium 4.2 (3.5-5.1) mmol/L Chloride 110 H (98-107) mmol/L Carbon Dioxide 30 (21-32) mmol/L Anion Gap 3.0 (3-11) BUN 16 (7-18) mg/dl Creatinine 0.91 (0.6-1.2) mg/dl Est Cr Clr Drug Dosing 46.6 ml/min Est GFR ( Amer) 66.7 Est GFR (Non-Af Amer) 57.5 BUN/Creatinine Ratio 17.5 (10-20) Glucose 98 (70-99) mg/dl Calcium 8.6 (8.5-10.1) mg/dl Magnesium (1.8-2.4) mg/dl Total Bilirubin (0.2-1) mg/dl AST (15-37) U/L ALT (12-78) U/L Alkaline Phosphatase (45-117) U/L Troponin I (0-0.045) ng/ml Total Protein (6.4-8.2) gm/dl Albumin (3.4-5.0) gm/dl Globulin (2.5-4.0) gm/dl Albumin/Globulin Ratio (0.9-2) TSH (0.300-4.500) uIu/ml Urine Color Urine Appearance (Clear) Urine pH (4.5-7.5) Ur Specific [place] (1.000-1.030) Urine Protein (Negative) Urine Glucose (UA) (Negative) Urine Ketones (Negative) Urine Blood (Negative) Urine Nitrite (Negative) Urine Bilirubin (Negative) Urine Urobilinogen (Negative) Ur Leukocyte Esterase (Negative) 01/11/19 01/11/19 01/11/19 Range/Units 20:50 20:15 20:15 WBC (4.8-10.8) K/uL RBC (4.2-5.4) M/uL Hgb (12.0-16.0) g/dL Hct (37-47) % MCV (80-100) fL MCH (25-34) pg MCHC (32-36) g/dL RDW Std Deviation (36.4-46.3) fL RDW Coeff of Kelli (11.5-14.5) % Plt Count (130-400) K/uL MPV (7.4-10.4) fL Immature Gran % (Auto) % Neut % (Auto) % Lymph % (Auto) % [place] % (Auto) % Eos % (Auto) % Baso % (Auto) % Immature Gran # (Auto) (0.00-0.02) K/uL Neut # (Auto) (1.4-6.5) K/uL Lymph # (Auto) (1.2-3.4) K/uL [place] # (Auto) (0.11-0.59) K/uL Eos # (Auto) (0-0.5) K/uL Baso # (Auto) (0-0.2) K/uL PT 10.3 (9.0-12.0) Seconds INR 1.0 (0.9-1.1) APTT 25.4 (21.0-31.0) Seconds PTT Ratio 0.9 Sodium 140 (136-145) mmol/L Potassium 4.2 (3.5-5.1) mmol/L Chloride 107 (98-107) mmol/L Carbon Dioxide 27 (21-32) mmol/L Anion Gap 5.0 (3-11) BUN 18 (7-18) mg/dl Creatinine 1.04 (0.6-1.2) mg/dl Est Cr Clr Drug Dosing 40.2 ml/min Est GFR ( Amer) 56.7 Est GFR (Non-Af Amer) 49.0 BUN/Creatinine Ratio 17.5 (10-20) Glucose 121 H (70-99) mg/dl Calcium 8.8 (8.5-10.1) mg/dl Magnesium 2.1 (1.8-2.4) mg/dl Total Bilirubin 0.6 (0.2-1) mg/dl AST 22 (15-37) U/L ALT 24 (12-78) U/L Alkaline Phosphatase 98 (45-117) U/L Troponin I < 0.015 (0-0.045) ng/ml Total Protein 6.8 (6.4-8.2) gm/dl Albumin 3.4 (3.4-5.0) gm/dl Globulin 3.4 (2.5-4.0) gm/dl Albumin/Globulin Ratio 1.0 (0.9-2) TSH 0.795 (0.300-4.500) uIu/ml Urine Color Yellow Urine Appearance Clear (Clear) Urine pH 7.0 (4.5-7.5) Ur Specific [place] 1.006 (1.000-1.030) Urine Protein Negative (Negative) Urine Glucose (UA) Negative (Negative) Urine Ketones Negative (Negative) Urine Blood Negative (Negative) Urine Nitrite Negative (Negative) Urine Bilirubin Negative (Negative) Urine Urobilinogen Negative (Negative) Ur Leukocyte Esterase Negative (Negative) 01/11/19 Range/Units 20:15 WBC 6.70 (4.8-10.8) K/uL RBC 4.45 (4.2-5.4) M/uL Hgb 13.8 (12.0-16.0) g/dL Hct 42.4 (37-47) % MCV 95.3 (80-100) fL MCH 31.0 (25-34) pg MCHC 32.5 (32-36) g/dL RDW Std Deviation 48.4 H (36.4-46.3) fL RDW Coeff of Kelli 13.8 (11.5-14.5) % Plt Count 247 (130-400) K/uL MPV 9.1 (7.4-10.4) fL Immature Gran % (Auto) 0.1 % Neut % (Auto) 60.2 % Lymph % (Auto) 28.8 % [place] % (Auto) 9.6 % Eos % (Auto) 1.2 % Baso % (Auto) 0.1 % Immature Gran # (Auto) 0.01 (0.00-0.02) K/uL Neut # (Auto) 4.03 (1.4-6.5) K/uL Lymph # (Auto) 1.93 (1.2-3.4) K/uL [place] # (Auto) 0.64 H (0.11-0.59) K/uL Eos # (Auto) 0.08 (0-0.5) K/uL Baso # (Auto) 0.01 (0-0.2) K/uL PT (9.0-12.0) Seconds INR (0.9-1.1) APTT (21.0-31.0) Seconds PTT Ratio Sodium (136-145) mmol/L Potassium (3.5-5.1) mmol/L Chloride (98-107) mmol/L Carbon Dioxide (21-32) mmol/L Anion Gap (3-11) BUN (7-18) mg/dl Creatinine (0.6-1.2) mg/dl Est Cr Clr Drug Dosing ml/min Est GFR ( Amer) Est GFR (Non-Af Amer) BUN/Creatinine Ratio (10-20) Glucose (70-99) mg/dl Calcium (8.5-10.1) mg/dl Magnesium (1.8-2.4) mg/dl Total Bilirubin (0.2-1) mg/dl AST (15-37) U/L ALT (12-78) U/L Alkaline Phosphatase (45-117) U/L Troponin I (0-0.045) ng/ml Total Protein (6.4-8.2) gm/dl Albumin (3.4-5.0) gm/dl Globulin (2.5-4.0) gm/dl Albumin/Globulin Ratio (0.9-2) TSH (0.300-4.500) uIu/ml Urine Color Urine Appearance (Clear) Urine pH (4.5-7.5) Ur Specific [place] (1.000-1.030) Urine Protein (Negative) Urine Glucose (UA) (Negative) Urine Ketones (Negative) Urine Blood (Negative) Urine Nitrite (Negative) Urine Bilirubin (Negative) Urine Urobilinogen (Negative) Ur Leukocyte Esterase (Negative) Medications Administered Current Inpatient Medications Acetaminophen (Tylenol) 650 mg PO Q4H PRN PRN Reason: Pain or Fever Stop: 02/10/19 22:59 Aspirin (Ecotrin Ectab) 81 mg PO DAILY [facility] Stop: 02/11/19 08:59 Atorvastatin Calcium (Lipitor) 20 mg PO DAILY [facility] Stop: 02/11/19 08:59 Enoxaparin Sodium (Lovenox) 30 mg SQ QAM ZACK Stop: 02/11/19 08:59 Lorazepam (Ativan) 0.25 mg in 0.5 mls @ 0.5 mls/min IV Q4H PRN PRN Reason: Anxiety Stop: 02/10/19 22:59 Promethazine HCl 12.5 mg/ (Sodium Chloride) 50.5 mls @ 202 mls/hr IV Q6H PRN PRN Reason: Nausea And Vomiting Stop: 02/10/19 22:59 Lorazepam (Ativan) 0.25 mg PO HS PRN PRN Reason: Insomnia Stop: 02/10/19 22:59 Last Admin: 01/11/19 23:54 Dose: 0.25 mg Documented by: Losartan Potassium (Cozaar) 12.5 mg PO DAILY [facility] Stop: 02/11/19 08:59 Sotalol HCl (Betapace) 80 mg PO BID ZACK Stop: 02/11/19 08:59 Tramadol HCl (Ultram) 25 mg PO Q4H PRN PRN Reason: Pain Stop: 02/10/19 22:59
[2019-01-12] MEDS: SOTALOL HCL 80 MG TAB PO SCH ×2 (08:38→19:54)
[2019-01-12] MEDS: LOSARTAN POTASSIUM 25 MG TAB PO SCH (08:39)
[2019-01-12] MEDS: ASPIRIN 81 MG ECTAB PO SCH (08:39)
[2019-01-12] MEDS: ATORVASTATIN 40 MG TAB PO SCH (08:39)
[2019-01-12] MEDS ORDERED: ENOXAPARIN INJ 30 MG/0.3 ML SYR SQ SCH (09:00)
[2019-01-12] MEDS ORDERED: SOTALOL HCL 80 MG TAB PO SCH (09:00)
--- NOTE | 2019-01-12 12:04 | Cardiology Consultation ---
Date of Consultation January 12, 2019 Assessment & Plan (1) Atrial fibrillation with RVR: (2) Palpitations: (3) Pacemaker: (4) Tachy-brenden syndrome: Unfortunately the patient is not on long-term anticoagulation due to a previous history of a rectus sheath hematoma. At this point I would continue with the sotalol. I am going to start her on IV heparin while she is in the hospital. She still has high heart rates. She had an improvement in her heart rate when she was given a bolus of diltiazem by the paramedics. Unfortunately the diltiazem was not continued. I will give her a bolus of diltiazem and start her on a diltiazem infusion. All her other medications will remain the same. History of Present Illness Attending Physician: Alonso Grimaldo MD History of Present Illness This is an 83-year-old female with a history of tachybradycardia syndrome, paroxysmal atrial fibrillation and a permanent pacemaker. She has been well controlled with sotalol as an outpatient until early this morning she awoke with a rapid heart rate and presented to the emergency department where she is been admitted with atrial fibrillation and RVR. The patient is not anticoagulated due to history of a rectus sheath hematoma. She is currently only on aspirin as an outpatient. She has no complaints of shortness of breath orthopnea. She denies chest pain. She is had no dizziness or lightheadedness. Allergies Allergy/AdvReac Type Severity Reaction Status Date / Time codeine Allergy Severe ANAPHYLAXIS Verified 01/11/19 21:03 nitrofurantoin Allergy Severe SWELLING Verified 01/11/19 21:03 AND HIVES nitroglycerin AdvReac Intermediate SHORTNESS Verified 01/11/19 21:03 OF BREATH Home Medications Home Medications Medication Instructions Recorded Confirmed Type aspirin [Aspir-81] 81 mg PO DAILY 01/11/19 01/11/19 History atorvastatin [Lipitor] 20 mg PO DAILY 01/11/19 01/11/19 History losartan [Cozaar] 12.5 mg PO DAILY 01/11/19 01/11/19 History metoprolol tartrate [Lopressor] 50 mg PO BID 01/11/19 01/11/19 History sotalol [Betapace] 80 mg PO BID 01/11/19 01/11/19 History Patient History Medical History HTN (hypertension) (Chronic) Hyperlipidemia (Chronic) Pacemaker (Chronic 06/25/13) "dual chamber pacemaker insertion 06/25/13 Dr. Serrano at [facility]" Tachy-brenden syndrome (Chronic) "s/p dual chamber pacemaker insertion 06/25/13 Dr. Serrano at [facility]" Paroxysmal atrial fibrillation (Chronic) CKD (chronic kidney disease), stage III (Chronic) Depressive disorder (Chronic) History of basal cell carcinoma (Chronic) History of squamous cell carcinoma (Chronic) Surgical History History of tonsillectomy (Chronic) History of appendectomy (Chronic) History of total hysterectomy (Chronic) History of cholecystectomy (Chronic) History of cataract surgery (Chronic) History of meniscectomy of right knee (Chronic) Family History Other Family history non-contributory Social History Preferred Language: Slovak Communication Ability: Effective Vp Mobile Products Required: No Beliefs That Will Affect Care: None Current Living Situation: Spouse Other Information That Helps Us Care for You: No Feels Safe at Home: Yes Safety Concerns: Feels Safe At This Time Smoking Status: Never smoker Hx Alcohol Use: Yes Alcohol type: wine Hx Substance Use: No Review of Systems Review of Systems: All systems reviewed & are unremarkable except as noted in HPI & below Nothing additional to add Physical Exam Physical Exam: General: no acute distress and stated age Head: normocephalic, no masses, lesions, tenderness or abnormalities Eyes: conjunctiva are pink and non-injected, sclera clear Neck: supple, no adenopathy, no bruits, normal jugular venous pulse, no hepatojugular reflux Chest: normal shape and normal respiratory effort Lungs: clear to auscultation and percussion Cardiac Exam: - irregular rate & rhythm, no murmurs gallops or rubs - normal S1, normal S2 Pulses: 2(+) throughout Abdomen: abdomen soft, non-tender, no abnormal masses and no hepatosplenomegaly Musculoskeletal: no gait disturbance, no joint inflammation, no deforming arthritis Extremities: no edema and no cyanosis Neuro: grossly normal exam Results & Data Vital Signs (Past 12 Hours) Vital Signs Temp Pulse Resp BP BP Pulse Ox 01/12/19 11:45 36.7 C 102 H 22 115/75 97 01/12/19 06:22 36.5 C 110 H 20 119/73 97 01/12/19 03:49 36.7 C 100 H 20 107/72 97 Laboratory Results Laboratory Results - last 24 hr 01/11/19 01/11/19 01/11/19 20:15 20:15 20:15 WBC 6.70 RBC 4.45 Hgb 13.8 Hct 42.4 MCV 95.3 MCH 31.0 MCHC 32.5 RDW Std Deviation 48.4 H RDW Coeff of Kelli 13.8 Plt Count 247 MPV 9.1 Immature Gran % (Auto) 0.1 Neut % (Auto) 60.2 Lymph % (Auto) 28.8 Mckinley % (Auto) 9.6 Eos % (Auto) 1.2 Baso % (Auto) 0.1 Immature Gran # (Auto) 0.01 Neut # (Auto) 4.03 Lymph # (Auto) 1.93 Mckinley # (Auto) 0.64 H Eos # (Auto) 0.08 Baso # (Auto) 0.01 PT 10.3 INR 1.0 APTT 25.4 PTT Ratio 0.9 Sodium 140 Potassium 4.2 Chloride 107 Carbon Dioxide 27 Anion Gap 5.0 BUN 18 Creatinine 1.04 Est Cr Clr Drug Dosing 40.2 Est GFR ( Amer) 56.7 Est GFR (Non-Af Amer) 49.0 BUN/Creatinine Ratio 17.5 Glucose 121 H Calcium 8.8 Magnesium 2.1 Total Bilirubin 0.6 AST 22 ALT 24 Alkaline Phosphatase 98 Troponin I < 0.015 Total Protein 6.8 Albumin 3.4 Globulin 3.4 Albumin/Globulin Ratio 1.0 TSH 0.795 Urine Color Urine Appearance Urine pH Ur Specific [place] Urine Protein Urine Glucose (UA) Urine Ketones Urine Blood Urine Nitrite Urine Bilirubin Urine Urobilinogen Ur Leukocyte Esterase 01/11/19 01/12/19 01/12/19 20:50 05:31 05:31 WBC 6.52 RBC 4.02 L Hgb 12.4 Hct 37.9 MCV 94.3 MCH 30.8 MCHC 32.7 RDW Std Deviation 47.2 H RDW Coeff of Kelli 13.7 Plt Count 220 MPV 8.7 Immature Gran % (Auto) 0.2 Neut % (Auto) 53.0 Lymph % (Auto) 37.1 Mckinley % (Auto) 8.3 Eos % (Auto) 1.2 Baso % (Auto) 0.2 Immature Gran # (Auto) 0.01 Neut # (Auto) 3.46 Lymph # (Auto) 2.42 Mckinley # (Auto) 0.54 Eos # (Auto) 0.08 Baso # (Auto) 0.01 PT INR APTT 25.4 PTT Ratio 0.9 Sodium Potassium Chloride Carbon Dioxide Anion Gap BUN Creatinine Est Cr Clr Drug Dosing Est GFR ( Amer) Est GFR (Non-Af Amer) BUN/Creatinine Ratio Glucose Calcium Magnesium Total Bilirubin AST ALT Alkaline Phosphatase Troponin I Total Protein Albumin Globulin Albumin/Globulin Ratio TSH Urine Color Yellow Urine Appearance Clear Urine pH 7.0 Ur Specific [place] 1.006 Urine Protein Negative Urine Glucose (UA) Negative Urine Ketones Negative Urine Blood Negative Urine Nitrite Negative Urine Bilirubin Negative Urine Urobilinogen Negative Ur Leukocyte Esterase Negative 01/12/19 05:31 WBC RBC Hgb Hct MCV MCH MCHC RDW Std Deviation RDW Coeff of Kelli Plt Count MPV Immature Gran % (Auto) Neut % (Auto) Lymph % (Auto) Mckinley % (Auto) Eos % (Auto) Baso % (Auto) Immature Gran # (Auto) Neut # (Auto) Lymph # (Auto) Mckinley # (Auto) Eos # (Auto) Baso # (Auto) PT INR APTT PTT Ratio Sodium 143 Potassium 4.2 Chloride 110 H Carbon Dioxide 30 Anion Gap 3.0 BUN 16 Creatinine 0.91 Est Cr Clr Drug Dosing 46.6 Est GFR ( Amer) 66.7 Est GFR (Non-Af Amer) 57.5 BUN/Creatinine Ratio 17.5 Glucose 98 Calcium 8.6 Magnesium Total Bilirubin AST ALT Alkaline Phosphatase Troponin I Total Protein Albumin Globulin Albumin/Globulin Ratio TSH Urine Color Urine Appearance Urine pH Ur Specific [place] Urine Protein Urine Glucose (UA) Urine Ketones Urine Blood Urine Nitrite Urine Bilirubin Urine Urobilinogen Ur Leukocyte Esterase Medications Administered Current Inpatient Medications Acetaminophen (Tylenol) 650 mg PO Q4H PRN PRN Reason: Pain or Fever Stop: 02/10/19 22:59 Aspirin (Ecotrin Ectab) 81 mg PO DAILY [facility] Stop: 02/11/19 08:59 Last Admin: 01/12/19 08:39 Dose: 81 mg Documented by: Atorvastatin Calcium (Lipitor) 20 mg PO DAILY ZACK Stop: 02/11/19 08:59 Last Admin: 01/12/19 08:39 Dose: 20 mg Documented by: Diltiazem HCl (Cardizem) 10 mg IV NOW STA Stop: 01/12/19 12:00 Enoxaparin Sodium (Lovenox) 30 mg SQ QAM ZACK Stop: 02/11/19 08:59 Last Admin: 01/12/19 08:39 Dose: Not Given Documented by: Heparin Sodium/Dextrose () 1 ea IV Q15M ZACK; Protocol Stop: 01/12/19 12:46 Lorazepam (Ativan) 0.25 mg in 0.5 mls @ 0.5 mls/min IV Q4H PRN PRN Reason: Anxiety Stop: 02/10/19 22:59 Promethazine HCl 12.5 mg/ (Sodium Chloride) 50.5 mls @ 202 mls/hr IV Q6H PRN PRN Reason: Nausea And Vomiting Stop: 02/10/19 22:59 Heparin Sodium/Dextrose (Heparin Sodium/Dextrose) 25,000 units in 500 mls @ 0.02 mls/hr IV .Q24H ZACK; Protocol Stop: 02/11/19 11:59 Diltiazem HCl 125 mg/ Dextrose 125 mls @ 0 mls/hr IV .Q0M ZACK; Protocol Stop: 02/11/19 11:59 Lorazepam (Ativan) 0.25 mg PO HS PRN PRN Reason: Insomnia Stop: 02/10/19 22:59 Last Admin: 01/11/19 23:54 Dose: 0.25 mg Documented by: Losartan Potassium (Cozaar) 12.5 mg PO DAILY ZACK Stop: 02/11/19 08:59 Last Admin: 01/12/19 08:39 Dose: 12.5 mg Documented by: Sotalol HCl (Betapace) 80 mg PO BID ZACK Stop: 02/11/19 07:59 Last Admin: 01/12/19 08:38 Dose: 80 mg Documented by: Tramadol HCl (Ultram) 25 mg PO Q4H PRN PRN Reason: Pain Stop: 02/10/19 22:59
[2019-01-12] MEDS ORDERED: dilTIAZem HCl 5 MG/ML 5 ML VIAL IV STA (12:11)
[2019-01-12] MEDS: dilTIAZem HCl 125 MG in DEXTROSE 5% 100 ML IV SCH (12:39)
[2019-01-12] MEDS ORDERED: HEPARIN SODIUM/DEXTROSE 25,000 UNITS/500 ML BAG IV SCH (14:00)
[2019-01-12] MEDS: Heparin IV Standard *NO* Bolus IV SCH ×2 (14:25→14:26)
[2019-01-12 21:03] LABS: Partial Thromboplastin Ratio 2.2
[2019-01-12 21:06] LABS: Partial Thromboplastin Time 59.6 Seconds (21.0-31.0)
[2019-01-13 06:32] LABS: Hematocrit (blood only) 35.7 % (37-47); Hemoglobin 11.8 g/dL (12.0-16.0); Mean Corpuscular Hgb Conc 33.1 g/dL (32-36); Mean Corpuscular Volume 93.7 fL (80-100); Platelet Count 206 K/uL (130-400); RDW Coefficient of Variation 13.7 % (11.5-14.5); RDW Standard Deviation 46.7 fL (36.4-46.3); Red Blood Count 3.81 M/uL (4.2-5.4); White Blood Count 5.91 K/uL (4.8-10.8)
[2019-01-13 07:04] LABS: BUN Creatinine Ratio 19.7 (10-20); Calcium 8.5 mg/dl (8.5-10.1); Creatinine Clr Calc Pharmacy 44.6 ml/min; Est GFR (African American) 63.3; Est GFR (Non-African American) 54.6; Potassium 3.8 mmol/L (3.5-5.1)
[2019-01-13 07:23] LABS: Partial Thromboplastin Ratio 4.5
[2019-01-13] MEDS: ATORVASTATIN 40 MG TAB PO SCH (07:52)
[2019-01-13] MEDS: ASPIRIN 81 MG ECTAB PO SCH (07:53)
[2019-01-13] MEDS: LOSARTAN POTASSIUM 25 MG TAB PO SCH (07:53)
[2019-01-13] MEDS: SOTALOL HCL 80 MG TAB PO SCH (07:53)
[2019-01-13] MEDS: dilTIAZem HCl 125 MG in DEXTROSE 5% 100 ML IV SCH (09:03)
--- NOTE | 2019-01-13 09:03 | Hospitalist Progress Note ---
Date of Service January 13, 2019 Assessment & Plan (1) Atrial fibrillation with RVR: Hx of SSS s/p PPM not on anticoagulation secondary to history of rectus sheath hematoma TSH wnl K, Mg wnl Echo - right atrium is markedly dilated, so is left atrium, EF 60 to 65%, RV systolic function normal, LV systolic function normal, moderate mitral regurg. Cardiology consulted, started dilt drip, and IV heparin, cont. home sotalol Patient spont. converted to sinus rhythm yesterday, plan to cont. home metoprolol and sotalol, IV dilt and heparin d/c'ed - given her high bleeding risk, anticoagulation was discussed w/ her gutter mouth cutter, decided for aspirin only - rate much better controlled now - cont. to closely monitor (2) HTN (hypertension): No current issues HTN at goal, in the setting of Afib will cont. to monitor closely (3) Hyperlipidemia: Cont. home atorvastatin (4) Depressive disorder: Pt is anxious and teary, says she always "has to take care of everything" -takes care of her -no chronic meds/ or therapy -at this time not interested in talking to a professional, says talking w/daughter and sister helps -consider psychotherapy as outpt -will cont. to monitor, prn med management (5) DVT prophylaxis: - currently on IV heparin (for Afib) Code status: Full code Subjective Converted to sinus rhythm yesterday at 14:48. Feels well overall, her is present at the bedside. Patient denies fevers, chills, chest pain, shortness of breath, palpitations, nausea, vomiting, abdominal pain. Review of Systems Review of Systems: All systems reviewed & are unremarkable except as noted in HPI & below Constitutional: no fever, no chills and no fatigue Respiratory: no cough and no dyspnea Cardiovascular: no chest pain, no dyspnea on exertion and no palpitations Gastrointestinal: no abdominal pain, no nausea and no vomiting Physical Exam Physical Exam: Elderly female sitting up in the bed, in no acute distress Constitutional: well developed and well nourished; no acute distress Eyes: PERRL, conjunctivae normal, anicteric sclerae ENMT: external ear and nose normal, oropharynx normal Neck: Supple, no JVD Respiratory: normal respiratory effort, lungs clear to auscultation Auscultation: no crackles, no rhonchi and no wheezes Cardiovascular: Heart Sounds: + murmur (II/ syst. mur. at apex); no gallop Chest (Breasts): Chest: normal inspection of chest Gastrointestinal (Abdomen): Inspection/Auscultation: abdomen normal to inspection and normal bowel sounds; abdomen not distended P ercussion/Palpation: abdomen soft; abdomen nontender Musculoskeletal: Head/Neck/Chest: normocephalic and head atraumatic Extremities: extremities normal to inspection Skin: no rashes, warm and dry Neurologic: PERRL, EOMI, accommodation nl, no face palsy, no dysarthria Psychiatric: Orientation: alert and oriented x 3 Speech: normal rate/rhythm/volume of speech Affect: + anxious affect Genitourinary: no CVA tenderness Lymphatic: no lymphedema and no cervical lymphadenopathy Results & Data Vital Signs (Past 12 Hours) Vital Signs Temp Pulse Pulse Resp BP Pulse Ox Pulse Ox 01/13/19 07:37 61 01/13/19 07:12 36.4 C L 67 18 121/75 98 01/13/19 03:43 36.5 C 65 18 134/81 98 01/12/19 23:04 36.5 C 62 18 114/73 98 01/12/19 23:00 98 Laboratory Results 01/13/19 01/13/19 01/13/19 Range/Units 06:06 06:06 06:06 WBC 5.91 (4.8-10.8) K/uL RBC 3.81 L (4.2-5.4) M/uL Hgb 11.8 L (12.0-16.0) g/dL Hct 35.7 L (37-47) % MCV 93.7 (80-100) fL MCH 31.0 (25-34) pg MCHC 33.1 (32-36) g/dL RDW Std Deviation 46.7 H (36.4-46.3) fL RDW Coeff of Kelli 13.7 (11.5-14.5) % Plt Count 206 (130-400) K/uL MPV 9.0 (7.4-10.4) fL APTT 121.0 H* (21.0-31.0) Seconds PTT Ratio 4.5 Sodium 142 (136-145) mmol/L Potassium 3.8 (3.5-5.1) mmol/L Chloride 107 (98-107) mmol/L Carbon Dioxide 29 (21-32) mmol/L Anion Gap 6.0 (3-11) BUN 19 H (7-18) mg/dl Creatinine 0.95 (0.6-1.2) mg/dl Est Cr Clr Drug Dosing 44.6 ml/min Est GFR ( Amer) 63.3 Est GFR (Non-Af Amer) 54.6 BUN/Creatinine Ratio 19.7 (10-20) Glucose 101 H (70-99) mg/dl Calcium 8.5 (8.5-10.1) mg/dl Magnesium 2.0 (1.8-2.4) mg/dl 01/12/19 Range/Units 20:14 WBC (4.8-10.8) K/uL RBC (4.2-5.4) M/uL Hgb (12.0-16.0) g/dL Hct (37-47) % MCV (80-100) fL MCH (25-34) pg MCHC (32-36) g/dL RDW Std Deviation (36.4-46.3) fL RDW Coeff of Kelli (11.5-14.5) % Plt Count (130-400) K/uL MPV (7.4-10.4) fL APTT 59.6 H* (21.0-31.0) Seconds PTT Ratio 2.2 Sodium (136-145) mmol/L Potassium (3.5-5.1) mmol/L Chloride (98-107) mmol/L Carbon Dioxide (21-32) mmol/L Anion Gap (3-11) BUN (7-18) mg/dl Creatinine (0.6-1.2) mg/dl Est Cr Clr Drug Dosing ml/min Est GFR ( Amer) Est GFR (Non-Af Amer) BUN/Creatinine Ratio (10-20) Glucose (70-99) mg/dl Calcium (8.5-10.1) mg/dl Magnesium (1.8-2.4) mg/dl Medications Administered Current Inpatient Medications Acetaminophen (Tylenol) 650 mg PO Q4H PRN PRN Reason: Pain or Fever Stop: 02/10/19 22:59 Aspirin (Ecotrin Ectab) 81 mg PO DAILY ZACK Stop: 02/11/19 08:59 Last Admin: 01/13/19 07:53 Dose: 81 mg Documented by: Atorvastatin Calcium (Lipitor) 20 mg PO DAILY ZACK Stop: 02/11/19 08:59 Last Admin: 01/13/19 07:52 Dose: 20 mg Documented by: Lorazepam (Ativan) 0.25 mg in 0.5 mls @ 0.5 mls/min IV Q4H PRN PRN Reason: Anxiety Stop: 02/10/19 22:59 Promethazine HCl 12.5 mg/ (Sodium Chloride) 50.5 mls @ 202 mls/hr IV Q6H PRN PRN Reason: Nausea And Vomiting Stop: 02/10/19 22:59 Heparin Sodium/Dextrose (Heparin Sodium/Dextrose) 25,000 units in 500 mls @ 0 mls/hr IV .Q0M ZACK; Protocol Stop: 02/11/19 13:59 Last Titration: 01/13/19 08:31 Dose: 950 units/hr, 19 mls/hr Documented by: Diltiazem HCl 125 mg/ Dextrose 125 mls @ 5 mls/hr IV .Q24H ZACK; Protocol Stop: 02/11/19 12:14 Last Titration: 01/13/19 07:21 Dose: 5 mg/hr, 5 mls/hr Documented by: Lorazepam (Ativan) 0.25 mg PO HS PRN PRN Reason: Insomnia Stop: 02/10/19 22:59 Last Admin: 01/11/19 23:54 Dose: 0.25 mg Documented by: Losartan Potassium (Cozaar) 12.5 mg PO DAILY ZACK Stop: 02/11/19 08:59 Last Admin: 01/13/19 07:53 Dose: 12.5 mg Documented by: Sotalol HCl (Betapace) 80 mg PO BID ZACK Stop: 02/11/19 07:59 Last Admin: 01/13/19 07:53 Dose: 80 mg Documented by: Tramadol HCl (Ultram) 25 mg PO Q4H PRN PRN Reason: Pain Stop: 02/10/19 22:59
--- NOTE | 2019-01-13 13:46 | Cardiology Progress Note ---
Date of Service January 13, 2019 Assessment & Plan (1) Atrial fibrillation with RVR: (2) Tachy-brenden syndrome: Patient had one previous prolonged episode of atrial fibrillation documented in 2013 at which time tachycardia-bradycardia syndrome was also diagnosed prompting implantation of dual-chamber [employer] pacemaker during that admission. Coumadin had been initiated in 2013, and after only receiving a minimal dose she developed a spontaneous rectus sheath hematoma. Due to her bleeding complications and she is therefore been maintained without chronic anticoagulation. Pacemaker interrogations have not revealed significant prolonged episodes of atrial fibrillation in the intervening time. Patient was admitted with having had what sounds like a 2 to 3-day episode of atrial fibrillation with symptoms of exertional shortness of breath palpitations. She has spontaneously converted to sinus rhythm. EKG this morning while in sinus rhythm revealed atrial pacing with corrected QT interval stable 464 ms. We discussed options such as adding anticoagulation, or keeping her in the hospital for titration of her sotalol dose. At this time I am inclined to continue her aspirin as the patient are both concerned about her past bleeding complication with Coumadin. I am going to continue her current dose of sotalol, add metoprolol for further rhythm control. We do not need to worry about bradycardia because she has an appropriately functioning pacemaker. Her IV diltiazem IV heparin going to be discontinued. She is going to have a walking trial in the PCU and if she does well, will plan to discharged home. Echocardiogram this admission reveals preserved LVEF with left atrial chamber dilatation and moderate mitral regurgitation this will be followed, no surgical intervention warranted at present. Subjective CC: Follow-up palpitations, shortness of breath with exertion Subjective: Patient feeling well. Per review of telemetry, she converted from atrial fibrillation to sinus rhythm 01/12/2019 at 1448 and has remained in sinus rhythm in the meantime with atrial pacing. She is feeling well. She remains on unfractioned heparin infusion as well as a diltiazem infusion at 5 mg/h. Review of Systems Review of Systems: All systems reviewed & are unremarkable except as noted in HPI & below Physical Exam Physical Exam: Temp Pulse Resp BP Pulse Ox 36.8 C 62 20 132/79 98 01/13/19 12:25 01/13/19 12:25 01/13/19 12:25 01/13/19 12:25 01/13/19 12:25 Constitutional: WD/WN, vitals as above Respiratory: normal respiratory effort, lungs clear to auscultation Cardiovascular: Rate/Rhythm: regular rhythm Heart Sounds: + murmur (I/Mcneill 6 systolic murmur) Vessels: no JVD Extremities: no edema Chest (Breasts): Chest: + pacemaker (Left infraclavicular pacemaker pocket clean dry and intact without erythema or device erosion) Gastrointestinal (Abdomen): normal bowel sounds, soft, nontender, no hep atosplenomegaly Neurologic: PERRL, EOMI, accommodation nl, no face palsy, no dysarthria Results & Data Vital Signs (Past 12 Hours) Vital Signs Temp Pulse Pulse Resp BP Pulse Ox 01/13/19 12:25 36.8 C 62 20 132/79 98 01/13/19 07:37 61 01/13/19 07:12 36.4 C L 67 18 121/75 98 01/13/19 03:43 36.5 C 65 18 134/81 98
[2019-01-13] MEDS ORDERED: METOPROLOL TARTRATE 25 MG TAB PO ONE (13:52)
[2019-01-13] MEDS ORDERED: METOPROLOL TARTRATE 50 MG TAB PO STA (14:03)
[2019-01-13 15:02] VITALS: BP 124/80; PULSE 60; TEMP 97.9; O2SAT 96
[2019-01-13] MEDS ORDERED: METOPROLOL TARTRATE 50 MG TAB PO SCH (21:00)
[2019-01-13] MEDS ORDERED: METOPROLOL TARTRATE 25 MG TAB PO SCH (21:00)
--- NOTE | 2019-01-13 21:19 | Discharge Summary ---
Date of Service January 13, 2019 Admission HPI Per Admitting Provider History obtained from patient, family, and records. 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 Recent confinement April 2014 under [facility] service for lumbar spine laminectomy. Last night patient noted palpitations around bedtime, feeling lightheaded, S OB on exertion. No chest pain, no cough symptoms. Patient compliant with home cardiac medications. SBP somewhat low last night in the 90s as per patient. Patient unable to sleep. 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 This morning patient had watery diarrhea, with nausea, no emesis, no abdominal pain. No fever, no chills. No known sick contacts, recent travel, or recent antibiotic Rx. SBP is higher than usual at home 170- 180s as per patient At the ER, patient noted to be in rapid A. fib. Cardiac rate 115. Admission Exam Per Admitting Provider GENERAL: Comfortable, obese, slightly anxious, no respiratory distress SKIN: Normal color, warm HEENT: Ceiba palpebral conjunctivae, no ptosis, dry buccal mucosa NECK : Supple, short neck, no tenderness CHEST : CTA, no tenderness HEART : Tachycardic, irregular, systolic murmur ABDOMEN: Some distention, nontender EXTREMITIES : No LE swelling/tenderness, no other conspicuous deformities noted NEUROLOGIC : Coherent, no facial asymmetry, no other gross focality Principal Diagnosis Atrial fibrillation w/ RVR, Hypertension, Hyperlipidemia, Anxiety/Depression Discharge Exam Constitutional well developed and well nourished; no acute distress Eyes PERRL, conjunctivae normal, anicteric sclerae ENMT external ear and nose normal, oropharynx normal Respiratory normal respiratory effort, lungs clear to auscultation Auscultation: no crackles, no rhonchi and no wheezes Cardiovascular Rate/Rhythm: regular rhythm Heart Sounds: + murmur (II/ syst. mur. at apex); no gallop Chest (Breasts) Chest: normal inspection of chest Gastrointestinal (Abdomen) Inspection/Auscultation: abdomen normal to inspection and normal bowel sounds; abdomen not distended Percussion/Palpation: abdomen soft; abdomen nontender Musculoskeletal Head/Neck/Chest: normocephalic and head atraumatic Extremities: extremities normal to inspection Skin no rashes, warm and dry Neurologic PERRL, EOMI, accommodation nl, no face palsy, no dysarthria Psychiatric Orientation: alert and oriented x 3 Speech: normal rate/rhythm/volume of speech Affect: + anxious affect Genitourinary no CVA tenderness Lymphatic no lymphedema and no cervical lymphadenopathy Discharge Data Allergies Allergy/AdvReac Type Severity Reaction Status Date / Time codeine Allergy Severe ANAPHYLAXIS Verified 01/11/19 21:03 nitrofurantoin Allergy Severe SWELLING Verified 01/11/19 21:03 AND HIVES nitroglycerin AdvReac Intermediate SHORTNESS Verified 01/11/19 21:03 OF BREATH Consultations 01/11/19 21:21 ED Decision to Admit Stat 01/11/19 23:00 Consult Cardiology Routine LABS: 01/13/19 01/13/19 01/13/19 Range/Units 06:06 06:06 06:06 WBC 5.91 (4.8-10.8) K/uL RBC 3.81 L (4.2-5.4) M/uL Hgb 11.8 L (12.0-16.0) g/dL Hct 35.7 L (37-47) % MCV 93.7 (80-100) fL MCH 31.0 (25-34) pg MCHC 33.1 (32-36) g/dL RDW Std Deviation 46.7 H (36.4-46.3) fL RDW Coeff of Kelli 13.7 (11.5-14.5) % Plt Count 206 (130-400) K/uL MPV 9.0 (7.4-10.4) fL APTT 121.0 H* (21.0-31.0) Seconds PTT Ratio 4.5 Sodium 142 (136-145) mmol/L Potassium 3.8 (3.5-5.1) mmol/L Chloride 107 (98-107) mmol/L Carbon Dioxide 29 (21-32) mmol/L Anion Gap 6.0 (3-11) BUN 19 H (7-18) mg/dl Creatinine 0.95 (0.6-1.2) mg/dl Est Cr Clr Drug Dosing 44.6 ml/min Est GFR ( Amer) 63.3 Est GFR (Non-Af Amer) 54.6 BUN/Creatinine Ratio 19.7 (10-20) Glucose 101 H (70-99) mg/dl Calcium 8.5 (8.5-10.1) mg/dl Magnesium 2.0 (1.8-2.4) mg/dl Hospital Course (1) Atrial fibrillation with RVR: Hx of SSS s/p PPM not on anticoagulation secondary to history of rectus sheath hematoma TSH wnl K, Mg wnl Echo - right atrium is markedly dilated, so is left atrium, EF 60 to 65%, RV systolic function normal, LV systolic function normal, moderate mitral regurg. Cardiology consulted, started dilt drip, and IV heparin, cont. home sotalol Patient spont. converted to sinus rhythm yesterday, plan to cont. home metopr olol and sotalol, IV dilt and heparin d/c'ed - given her high bleeding risk, anticoagulation was discussed w/ her parts room clerk, decided for aspirin only - rate much better controlled now - cont. to closely monitor (2) HTN (hypertension): No current issues HTN at goal, in the setting of Afib will cont. to monitor closely (3) Hyperlipidemia: Cont. home atorvastatin (4) Depressive disorder: Pt is anxious and teary, says she always "has to take care of everything" -takes care of her -no chronic meds/ or therapy -at this time not interested in talking to a professional, says talking w/daughter and sister helps -consider psychotherapy as outpt -will cont. to monitor, prn med management (5) DVT prophylaxis: - currently on IV heparin (for Afib) Code status: Full code Total Time Total Time Spent Total Time Spent (In Minutes): 35 min Total Time Includes: Examination of the Patient, Discharge Planning, Medication Reconciliation and Communication With Other Providers Discharge Plan Discharge Items Patient Disposition: Home - Self-Care Reason For Visit: AF Discharge Diagnosis: Atrial fibrillation Condition on Discharge: Good Activity: Resume your previous activity Activity Comment: as tolerated Non-emergency contact: Primary Care Provider and Supervisor [employer] Call non-emergency contact if: you have any medication questions and your symptoms worsen Follow-up/Referrals: Eddie Graves MD [Primary Care Provider] - Diet: Heart Healthy Addtl Attending Provider Instructions: Resume your previous medications (sotalol and metoprolol), continue taking aspirin. Pending Studies at Discharge: No Stand-Alone Forms: [employer] [facility], Smoking Cessation Medications and DC Order Prescriptions: New metoprolol tartrate 50 mg tablet 50 mg PO BID Qty: 60 RF: 0 Continued atorvastatin [Lipitor] 40 mg tablet 20 mg PO DAILY RF: 0 sotalol [Betapace] 80 mg tablet 80 mg PO BID RF: 0 aspirin [Aspir-81] 81 mg Tablet,Delayed Release (Dr/Ec) 81 mg PO DAILY RF: 0 losartan [Cozaar] 25 mg tablet 12.5 mg PO DAILY RF: 0 metoprolol tartrate [Lopressor] 50 mg tablet 50 mg PO BID Qty: 60 RF: 0 Discharge Orders: Discharge Order (Routine); Ordered 01/13/19 Ordered By: Alonso Grimaldo Admission Data Admit Date/Time: 01/11/19 22:13 Attending Provider: Alonso Grimaldo Admit Provider: Escobar Zarate Primary Care Provider: Eddie Graves Other Providers: Escobar Zarate ; Jan Eid Other Interventions: Discharge Summary Assessment (RN) Last Done: 01/13/19 18:17 DC Date/Time DO NOT enter until pt leaves facility: 01/13/19 18:30
== END 2019-01-13 18:30 | disposition home or self-care (01) ==
LOC: ED 20:06 → 2S 20:06
DX: I12.9 Hypertensive chronic kidney disease with stage 1 through stage 4 chronic kidney disease, or unspecified chronic kidney disease; Z79.899 Other long term (current) drug therapy; E78.5 Hyperlipidemia, unspecified; F32.9 Major depressive disorder, single episode, unspecified; I49.5 Sick sinus syndrome; N18.3 Chronic kidney disease, stage 3 (moderate); R19.7 Diarrhea, unspecified; Z79.82 Long term (current) use of aspirin; Z95.0 Presence of cardiac pacemaker; Z88.8 Allergy status to other drugs, medicaments and biological substances; I48.0 Paroxysmal atrial fibrillation; Z88.5 Allergy status to narcotic agent; Z85.828 Personal history of other malignant neoplasm of skin

== ENCOUNTER 2019-06-23 15:34 | Inpatient (IN) ==
[2019-06-23] MEDS ORDERED: dilTIAZem HCl 5 MG/ML 5 ML VIAL IV STA (16:05)
[2019-06-23] MEDS ORDERED: STAT IV Infusion **Titration per Protocol STA (16:05)
[2019-06-23] MEDS ORDERED: SODIUM CHLORIDE 0.9% 500 ML IV SCH (16:15)
--- NOTE | 2019-06-23 16:19 | XRay Report ---
XR chest 1V portable CLINICAL HISTORY: lightheaded COMPARISON STUDY: Chest radiograph January 11, 2019. FINDINGS: Left subclavian pacemaker is unchanged in position. There is moderate cardiomegaly without evidence for pulmonary edema. No consolidation is identified. The appearance of the chest is unchange d. IMPRESSION: No acute cardiopulmonary findings. No change in appearance of the chest. ACT 112: Negative or not required by law. Electronically signed by: Refugio Cherry M.D. 06/23/2019 4:18 PM
[2019-06-23 16:21] LABS: Basophils # (auto) 0.01 K/uL (0-0.2); Basophils % (auto) 0.1 %; Eosinophils # (auto) 0.04 K/uL (0-0.5); Eosinophils % (auto) 0.6 %; Hematocrit (blood only) 42.2 % (37-47); Hemoglobin 13.7 g/dL (12.0-16.0); Immature Granulocytes # (auto) 0.01 K/uL (0.00-0.02); Immature Granulocytes % (auto) 0.1 %; Lymphocytes # (auto) 1.75 K/uL (1.2-3.4); Lymphocytes % (auto) 25.6 %; Mean Corpuscular Hemoglobin 30.7 pg (25-34); Mean Corpuscular Hgb Conc 32.5 g/dL (32-36); Mean Corpuscular Volume 94.6 fL (80-100); Mean Platelet Volume 9.2 fL (7.4-10.4); Monocytes # (auto) 0.54 K/uL (0.11-0.59); Monocytes % (auto) 7.9 %; Neutrophils # (auto) 4.49 K/uL (1.4-6.5); Neutrophils % (auto) 65.7 %; Platelet Count 258 K/uL (130-400); RDW Coefficient of Variation 13.8 % (11.5-14.5); RDW Standard Deviation 47.8 fL (36.4-46.3); Red Blood Count 4.46 M/uL (4.2-5.4); White Blood Count 6.84 K/uL (4.8-10.8)
--- NOTE | 2019-06-23 16:26 | Emergency Department Note ---
Impression & Plan Atrial fibrillation with rapid ventricular response, Light-headed ED Provider Note Provider: Star Saldivar MD DATE OF SERVICE: 06/23/2019 CHIEF COMPLAINT: Lightheaded HISTORY OF PRESENT ILLNESS: Patient is a 83-year-old female history of atrial fibrillation not on anticoagulation due to history of rectal CA hematoma, tachybradycardia syndrome with pacemaker, CKD, hypertension currently maintained on aspirin, metoprolol, sotalol at home presenting today states overnight she felt a little bit off and then this morning around 9 AM when she got up noted significant lightheadedness. Patient denies any numbness or tingling in her extremities or aphasia or difficulty speaking or swallowing. Patient denies palpitations, chest pain, shortness of breath. Patient did take her blood pressure at home noted to be somewhat lower at 108 systolic with significant tachycardia. Patient called her car rental agency manager office referred her here for further evaluation. Patient again denies missing any medications. Patient denies recent fever or URI symptoms. Patient denies recent travel. Patient den ies recent energy drink use or caffeinated drink use. REVIEW OF SYSTEMS: A total of 10 review of systems was obtained and negative except as stated above in the HPI. PAST MEDICAL HISTORY: As noted above MEDICATIONS: As noted above and in the nursing no significant for aspirin, Toprol, and sotalol SOCIAL HISTORY: nonsmoker, lives at home with . PHYSICAL EXAM: GENERAL: alert and oriented in no acute distress on stretcher Head: normocephalic and atraumatic EYES: No injection, discharge or icterus. PERRL NECK: Trachea midline. Supple. ENT: Mucous membranes pink and moist. LUNGS: Airway patent. No retractions. Breath sounds clear with good air entry bilaterally. HEART: Tachycardic and regular rate and rhythm. No chest wall tenderness ABDOMEN: Soft and non-tender, without guarding or rebound. SKIN: Acyanotic, warm, dry, without rashes EXTREMITIES: Without swelling, tenderness or deformity NEUROLOGICAL: No focal deficits. No aphasia. No facial droop or slurred speech. Moving all extremities without difficulty. EKG: Atrial fibrillation with rapid ventricular response at a rate of 104 bpm. Left axis. Occasional paced complexes are noted. No acute ST segment elevatio ns noted. CONTINUOUS CARDIAC MONITORING: was ordered and showed a heart rate of 88 bpm in atrial fibrillation with intermittent paced beats. Patient's hypertension was referred to the hospitalist HOSPITAL COURSE: 1600 Patient was first seen and H&P performed. 1731 Patient reassessed and updated. Patient was Feeling improved heart rates improved but still in atrial fibrillation [address] Marshall, rec admission and dilt ggt overnight, consider low dose heparin ggt 1752 Discussed with Davina Felix [facility] Hospitalist for Dr. Serna. Patient's laboratory studies and imaging reviewed. Differential includes Premature contractions, electrolyte abnormality, cardiac dysrhythmia, thyroid dysfunction, pulmonary embolism, infection, gastrointestinal, as well as other pathologies. IMPRESSION/MEDICAL DECISION MAKING: Patient presents with a lightheadedness with noted tachycardia found to be in atrial fibrillation with RVR. During the maintained normal sinus rhythm on home medication secondary to her history of bleeding not on anticoagulation. Initially given some diltiazem here to try to slow her rate improve her symptomatically and affect conversion. Basic labs are sent. Chest x-ray performed. Doubt this is acutely infectious. Doubt PE or dissection. Pacemaker was interrogated. No clinical evidence of significant pulmonary edema or heart failure. Patient's blood work is reassuring. No evidence of ischemia. Patient's heart rate significantly improved but still in atrial fibrillation with intermittent pacing. Discussed with cardiology who recommended admission at this time. Will defer additional aggressive cardioversion at this time. Discussed with the patient cards recommendation for a low-dose no bolus heparin drip but given her history the patient was reluctant and wished to decline initially. [facility] Hospitalist team was alerted. Patient later wsa in agreement for low dose heparin drip. DIAGNOSIS: Atrial fibrillation with rapid ventricular response, lightheadedness DISPOSITION: Hospitalist will evaluate Patient was agreeable with this plan. I have personally spent 40 minutes of critical care time in the direct management of this patient. This includes bedside care, interpretation of diagnostic studies, and testing, discussion with consultants, patient, and family members, and other required patient management activities. These 40 minutes is in excess of all separately billable procedures. Past Med/Surg History Medical History CKD (chronic kidney disease), stage III (Chronic) Depressive disorder (Chronic) History of basal cell carcinoma (Chronic) History of squamous cell carcinoma (Chronic) HTN (hypertension) (Chronic) Hyperlipidemia (Chronic) Pacemaker (Chronic 06/25/13) "dual chamber pacemaker insertion 06/25/[address] [facility]" Paroxysmal atrial fibrillation (Chronic) Tachy-brenden syndrome (Chronic) "s/p dual chamber pacemaker insertion 06/25/[address] Dr. [address] [facility]" Surgical History History of appendectomy (Chronic) History of cataract surgery (Chronic) History of cholecystectomy (Chronic) History of meniscectomy of right knee (Chronic) History of tonsillectomy (Chronic) History of total hysterectomy (Chronic) Family History Mother Breast cancer Father Heart disease Social History Preferred Language: Persian Communication Ability: Effective Mold Designer Required: No Beliefs That Will Affect Care: None Current Living Situation: Spouse Other Information That Helps Us Care for You: No Feels Safe at Home: Yes Safety Concerns: Feels Safe At This Time Smoking Status: Never smoker Hx Alcohol Use: No Hx Substance Use: No Allergies Allergies Allergy/AdvReac Type Severity Reaction Status Date / Time codeine Allergy Severe ANAPHYLAXIS Verified 06/23/19 16:38 nitrofurantoin Allergy Severe SWELLING Verified 06/23/19 16:38 AND HIVES nitroglycerin AdvReac Intermediate SHORTNESS Verified 06/23/19 16:38 OF BREATH Home Meds Home Medications Medication Instructions Recorded Confirmed aspirin [Aspir-81] 81 mg PO DAILY 01/11/19 06/23/19 atorvastatin [Lipitor] 20 mg PO DAILY 01/11/19 06/23/19 losartan [Cozaar] 12.5 mg PO DAILY 01/11/19 06/23/19 sotalol [Betapace] 80 mg PO BID 01/11/19 06/23/19 Previous Rx's Medication Instructions Recorded metoprolol tartrate 50 mg PO BID #60 tab 01/13/19 Results & Data (ED) Vital Signs Vital Signs - 24 hr 06/23/19 15:42 06/23/19 15:55 06/23/19 16:01 Temperature 36.8 C Temperature Source Oral Pulse Rate 116 H 122 H 136 H Pulse Rate from SpO2 Sensor 115 H 119 H Pulse Rhythm Irregular Pulse Strength Normal Respiratory Rate Blood Pressure 144/89 H 128/88 138/62 Blood Pressure Mean 107 91 65 Blood Pressure Position Sitting Pulse Oximetry 99 97 97 Oxygen Delivery Method Room Air Sepsis Recent Fever Within 48 Hours No Sepsis New/Unexplained Change in Mental Status No Sepsis Action Taken by Nursing No Action Required 06/23/19 16:30 06/23/19 16:59 06/23/19 17:00 Temperature Temperature Source Pulse Rate 117 H 67 76 Pulse Rate from SpO2 Sensor 114 H 69 72 Pulse Rhythm Pulse Strength Respiratory Rate 19 13 14 Blood Pressure 114/73 95/64 L 116/72 Blood Pressure Mean 90 72 81 Blood Pressure Position Pulse Oximetry 97 96 97 Oxygen Delivery Method Room Air Room Air Sepsis Recent Fever Within 48 Hours Sepsis New/Unexplained Change in Mental Status Sepsis Action Taken by Nursing 06/23/19 17:05 06/23/19 17:10 06/23/19 17:15 Temperature Temperature Source Pulse Rate 67 86 76 Pulse Rate from SpO2 Sensor 66 80 61 Pulse Rhythm Pulse Strength Respiratory Rate 16 14 13 Blood Pressure 100/73 106/73 111/70 Blood Pressure Mean 78 80 84 Blood Pressure Position Pulse Oximetry 94 95 95 Oxygen Delivery Method Room Air Room Air Room Air Sepsis Recent Fever Within 48 Hours Sepsis New/Unexplained Change in Mental Status Sepsis Action Taken by Nursing 06/23/19 17:20 06/23/19 17:25 06/23/19 17:30 Temperature Temperature Source Pulse Rate 92 H 74 82 Pulse Rate from SpO2 Sensor 95 H 72 77 Pulse Rhythm Pulse Strength Respiratory Rate 16 13 18 Blood Pressure 113/74 99/68 L 118/77 Blood Pressure Mean 88 81 87 Blood Pressure Position Pulse Oximetry 96 97 96 Oxygen Delivery Method Room Air Room Air Room Air Sepsis Recent Fever Within 48 Hours Sepsis New/Unexplained Change in Mental Status Sepsis Action Taken by Nursing 06/23/19 17:35 06/23/19 17:40 06/23/19 17:46 Temperature Temperature Source Pulse Rate 79 93 H 76 Pulse Rate from SpO2 Sensor 70 83 88 Pulse Rhythm Pulse Strength Respiratory Rate 14 13 17 Blood Pressure 115/76 109/68 108/86 Blood Pressure Mean 86 84 88 Blood Pressure Position Pulse Oximetry 97 96 94 Oxygen Delivery Method Room Air Room Air Room Air Sepsis Recent Fever Within 48 Hours Sepsis New/Unexplained Change in Mental Status Sepsis Action Taken by Nursing 06/23/19 17:50 06/23/19 17:55 06/23/19 18:00 Temperature Temperature Source Pulse Rate 110 H 78 103 H Pulse Rate from SpO2 Sensor 105 H 83 107 H Pulse Rhythm Pulse Strength Respiratory Rate 16 12 19 Blood Pressure 116/84 124/88 123/76 Blood Pressure Mean 89 99 109 Blood Pressure Position Pulse Oximetry 97 96 94 Oxygen Delivery Method Room Air Room Air Sepsis Recent Fever Within 48 Hours Sepsis New/Unexplained Change in Mental Status Sepsis Action Taken by Nursing Laboratory Data Result diagrams: 06/23/19 15:59 06/23/19 15:59 Lab Results 06/23/19 06/23/19 06/23/19 Range/Units 15:59 15:59 15:59 WBC 6.84 (4.8-10.8) K/uL RBC 4.46 (4.2-5.4) M/uL Hgb 13.7 (12.0-16.0) g/dL Hct 42.2 (37-47) % MCV 94.6 (80-100) fL MCH 30.7 (25-34) pg MCHC 32.5 (32-36) g/dL RDW Std Deviation 47.8 H (36.4-46.3) fL RDW Coeff of Kelli 13.8 (11.5-14.5) % Plt Count 258 (130-400) K/uL MPV 9.2 (7.4-10.4) fL Immature Gran % (Auto) 0.1 % Neut % (Auto) 65.7 % Lymph % (Auto) 25.6 % [place] % (Auto) 7.9 % Eos % (Auto) 0.6 % Baso % (Auto) 0.1 % Immature Gran # (Auto) 0.01 (0.00-0.02) K/uL Neut # (Auto) 4.49 (1.4-6.5) K/uL Lymph # (Auto) 1.75 (1.2-3.4) K/uL [place] # (Auto) 0.54 (0.11-0.59) K/uL Eos # (Auto) 0.04 (0-0.5) K/uL Baso # (Auto) 0.01 (0-0.2) K/uL PT 10.9 (9.0-12.0) Seconds INR 1.0 (0.9-1.1) Sodium 138 (136-145) mmol/L Potassium 4.3 (3.5-5.1) mmol/L Chloride 104 (98-107) mmol/L Carbon Dioxide 26 (21-32) mmol/L Anion Gap 7.0 (3-11) BUN 20 H (7-18) mg/dl Creatinine 1.02 (0.6-1.2) mg/dl Est Cr Clr Drug Dosing Not Reportable Est GFR ( Amer) 58.1 Est GFR (Non-Af Amer) 50.1 BUN/Creatinine Ratio 19.8 (10-20) Glucose 140 H (70-99) mg/dl Calcium 9.1 (8.5-10.1) mg/dl Magnesium 2.3 (1.8-2.4) mg/dl Total Bilirubin 0.5 (0.2-1) mg/dl AST 23 (15-37) U/L ALT 32 (12-78) U/L Alkaline Phosphatase 93 (45-117) U/L Troponin I < 0.015 (0-0.045) ng/ml Total Protein 6.8 (6.4-8.2) gm/dl Albumin 3.3 L (3.4-5.0) gm/dl Globulin 3.5 (2.5-4.0) gm/dl Albumin/Globulin Ratio 1.0 (0.9-2) TSH 0.456 (0.300-4.500) uIu/ml Administered Medications Diltiazem HCl 125 mg/ Dextrose 125 mls @ 5 mls/hr IV .Q24H [facility]; Protocol Stop: 07/23/19 16:14 Last Titration: 06/23/19 20:25 Dose: 10 mg/hr, 10 mls/hr Documented by: [id number] Cosigned by: [id number] Admin: 06/23/19 16:53 Dose: 5 mg/hr, 5 mls/hr Documented by: [id number] Cosigned by: [id number] Discontinued Medications Diltiazem HCl (Cardizem) 15 mg IV NOW STA Stop: 06/23/19 16:06 Last Admin: 06/23/19 16:45 Dose: 15 mg Documented by: [id number] Cosigned by: [id number] Sodium Chloride (Nss) 500 mls @ 999 mls/hr IV .Q31M ZACK Stop: 06/23/19 16:45 Last Infusion: 06/23/19 17:32 Dose: 0 mls/hr Documented by: [id number] Admin: 06/23/19 16:45 Dose: 999 mls/hr Documented by: [id number] Discharge Plan Visit Data *Final* Discharge Date/Time: 06/23/19 18:43 Chief Complaint: Tachycardia Stated Complaint: LIGHTHEADED, TACHYCARDIA ED Provider: Star Saldivar Discharge Problem: Atrial fibrillation with rapid ventricular response, Light-headed Patient Disposition: Admitted As Inpatient Condition: Good Discharge Instructions Interventions: ED Discharge Assessment Last Done: 06/23/19 18:43
[2019-06-23 16:34] LABS: Prothrombin Time 10.9 Seconds (9.0-12.0)
[2019-06-23] MEDS: dilTIAZem HCL 125 MG in DEXTROSE 5% 100 ML IV SCH (16:53)
[2019-06-23 17:02] LABS: Alanine Aminotransferase 32 U/L (12-78); Albumin Level 3.3 gm/dl (3.4-5.0); Aspartate Aminotransferase 23 U/L (15-37); BUN Creatinine Ratio 19.8 (10-20); Blood Urea Nitrogen 20 mg/dl (7-18); Calcium 9.1 mg/dl (8.5-10.1); Carbon Dioxide 26 mmol/L (21-32); Chloride 104 mmol/L (98-107); Est GFR (African American) 58.1; Est GFR (Non-African American) 50.1; Glucose 140 mg/dl (70-99); Magnesium 2.3 mg/dl (1.8-2.4); Potassium 4.3 mmol/L (3.5-5.1); Sodium 138 mmol/L (136-145)
[2019-06-23 17:16] LABS: Alkaline Phosphatase 93 U/L (45-117); Bilirubin,Total 0.5 mg/dl (0.2-1); Globulin 3.5 gm/dl (2.5-4.0); Thyroid Stimulating Hormone 0.456 uIu/ml (0.300-4.500); Total Protein 6.8 gm/dl (6.4-8.2); Troponin I < 0.015 ng/ml (0-0.045)
--- NOTE | 2019-06-23 19:04 | History & Physical Report ---
Date of Service June 23, 2019 Assessment & Plan (1) Atrial fibrillation with rapid ventricular response: (2) Tachy-brenden syndrome: (3) Pacemaker: -Admit to telemetry -Patient presenting from home with reports of shortness of breath and lightheadedness. In ED, found to be in atrial fibrillation with RVR with rates in the 130s. -History of tachybradycardia syndrome and atrial fibrillation s/p pacemaker typically managed with metoprolol and sotalol -Not on anticoagulation secondary to history of spontaneous rectus sheath hematoma -S/p Cardizem 15 mg IV bolus in ED, followed by drip; continue Cardizem drip for tonight -ED notified Dr. Marshall, who recommends low-dose IV heparin, no bolus while hospitalized -Initial troponin negative, continue to cycle -Recent echo 12/2018; defer repeat study to cardiology -No precipitating cause identified at this time (electrolytes and TSH WNL, no infectious source, patient reports medication compliance) (4) HTN (hypertension): -BP controlled, continue losartan (5) Hyperlipidemia: -Continue statin (6) DVT prophylaxis: -On IV heparin History of Present Illness Chief Complaint: Shortness of breath, tachycardia Primary Care Provider: Edide Graves MD 83-year-old female who presents the ED for evaluation of shortness of breath and tachycardia. Patient with history of tachybradycardia syndrome and atrial fibrillation s/p pacemaker. Patient reports that she awoke in the middle the night and she had some shortness of breath however she was able to fall back to sleep. When she got up this morning, she felt lightheaded with ambulation and also has shortness of breath. She has a home blood pressure and heart rate monitor and when checked, her heart rate was in the 120s. She called her industrial relations manager office who recommended she come to the ED for further evaluation. Patient reports she otherwise been feeling well recently. Reports compliance with all medications. She denies chest pain and palpitations. No dizziness, diaphoresis, syncopal event. She denies orthopnea and lower extremity edema. No other recent illnesses, fevers, chills. She denies abdominal pain or nausea. No urinary symptoms. In the ED, patient was found to be in atrial fibrillation with RVR with heart rates in the 130s at times. She was given diltiazem 50 mg IV bolus followed by drip. Heart rates have improved however she remains in atrial fibrillation. Labs are unremarkable. Allergies Allergy/AdvReac Type Severity Reaction Status Date / Time codeine Allergy Severe ANAPHYLAXIS Verified 06/23/19 16:38 nitrofurantoin Allergy Severe SWELLING Verified 06/23/19 16:38 AND HIVES nitroglycerin AdvReac Intermediate SHORTNESS Verified 06/23/19 16:38 OF BREATH Home Medications Home Medications Medication Instructions Recorded Confirmed Type aspirin [Aspir-81] 81 mg PO DAILY 01/11/19 06/23/19 History atorvastatin [Lipitor] 20 mg PO DAILY 01/11/19 06/23/19 History losartan [Cozaar] 12.5 mg PO DAILY 01/11/19 06/23/19 History sotalol [Betapace] 80 mg PO BID 01/11/19 06/23/19 History metoprolol tartrate 50 mg PO BID #60 tab 01/13/19 06/23/19 Rx Past Med/Surg History Medical History CKD (chronic kidney disease), stage III (Chronic) Depressive disorder (Chronic) History of basal cell carcinoma (Chronic) History of squamous cell carcinoma (Chronic) HTN (hypertension) (Chronic) Hyperlipidemia (Chronic) Pacemaker (Chronic 06/25/13) "dual chamber pacemaker insertion 06/25/13 Dr. Serrano at [facility]" Paroxysmal atrial fibrillation (Chronic) Tachy-brenden syndrome (Chronic) "s/p dual chamber pacemaker insertion 06/25/13 Dr. Serrano at [facility]" Surgical History History of appendectomy (Chronic) History of cataract surgery (Chronic) History of cholecystectomy (Chronic) History of meniscectomy of right knee (Chronic) History of tonsillectomy (Chronic) History of total hysterectomy (Chronic) Family History Mother Breast cancer Father Heart disease Social History Preferred Language: Indonesian Communication Ability: Effective Joint Setter Required: No Beliefs That Will Affect Care: None Current Living Situation: Spouse Other Information That Helps Us Care for You: No Feels Safe at Home: Yes Safety Concerns: Feels Safe At This Time Smoking Status: Never smoker Hx Alcohol Use: No Hx Substance Use: No Review of Systems Review of Systems: ROS per HPI, all other systems reviewed and negative Physical Exam Constitutional: WD/WN, vitals as above Eyes: PERRL, conjunctivae normal, anicteric sclerae ENMT: external ear and nose normal, oropharynx normal Respiratory: normal respiratory effort, lungs clear to auscultation Cardiovascular: Rate/Rhythm: + tachycardic and + irregularly irregular Vessels: normal peripheral pulses Extremities: no edema Gastrointestinal (Abdomen): normal bowel sounds, soft, nontender, no hepatosplenomegaly Musculoskeletal: no cyanosis or clubbing, extremities motor strength 5/5 Skin: no rashes, warm and dry Neurologic: PERRL, EOMI, accommodation nl, no face palsy, no dysarthria Psychiatric: A+Ox3, euthymic affect Results & Data Results & Data ([facility]) Vital Signs (Past 12 Hours) Vital Signs Temp Pulse Resp BP Pulse Ox 06/23/19 18:40 92 H 15 152/89 H 06/23/19 18:35 111 H 19 138/81 06/23/19 18:30 105 H 19 124/72 06/23/19 18:29 99 H 28 H 118/68 06/23/19 18:15 101 H 14 127/91 92 06/23/19 18:11 105 H 23 139/61 95 06/23/19 18:05 80 15 127/80 94 06/23/19 18:00 103 H 19 123/76 94 06/23/19 17:55 78 12 124/88 96 06/23/19 17:50 110 H 16 116/84 97 06/23/19 17:46 76 17 108/86 94 06/23/19 17:40 93 H 13 109/68 96 06/23/19 17:35 79 14 115/76 97 06/23/19 17:30 82 18 118/77 96 06/23/19 17:25 74 13 99/68 L 97 06/23/19 17:20 92 H 16 113/74 96 06/23/19 17:15 76 13 111/70 95 06/23/19 17:10 86 14 106/73 95 06/23/19 17:05 67 16 100/73 94 06/23/19 17:00 76 14 116/72 97 06/23/19 16:59 67 13 95/64 L 96 06/23/19 16:30 117 H 19 114/73 97 06/23/19 16:01 136 H 19 138/62 97 06/23/19 15:55 122 H 21 128/88 97 06/23/19 15:42 36.8 C 116 H 22 144/89 H 99 Laboratory Results Short CBC 06/23/19 Range/Units 15:59 WBC 6.84 (4.8-10.8) K/uL Hgb 13.7 (12.0-16.0) g/dL Hct 42.2 (37-47) % Plt Count 258 (130-400) K/uL BMP 06/23/19 15:59 Sodium 138 Potassium 4.3 Chloride 104 Carbon Dioxide 26 BUN 20 H Creatinine 1.02 Glucose 140 H Calcium 9.1 Cardiac Enzymes 06/23/19 Range/Units 15:59 Troponin I < 0.015 (0-0.045) ng/ml Liver Function 06/23/19 Range/Units 15:59 Total Bilirubin 0.5 (0.2-1) mg/dl AST 23 (15-37) U/L ALT 32 (12-78) U/L Alkaline Phosphatase 93 (45-117) U/L Albumin 3.3 L (3.4-5.0) gm/dl Diagnostic Findings CXR IMPRESSION: No acute cardiopulmonary findings. No change in appearance of the chest. Code Status & VTE Plan Code Status Patient is a DNR as per my discussion with her. VTE Prophylaxis Plan VTE Prophylaxis will be ordered: Yes Supervising Physician Co-Signing Physician Notes Attending addendum; as of 06/23/2019 The patient was seen and examined in telemetry unit She is an 83-year-old female with significant past medical history of atrial fibrillation with tachybradycardia syndrome status post pacemaker presented to ER with shortness of breath and lightheadedness. He was noted to have atrial fibrillation with rapid ventricular response in the ER Denied any chest pain On examination No apparent distress at rest Hemodynamically stable Chest-clear to auscultate bilaterally Heart-S1-S2 is regular Abdomenbenign, bowel sound present Extremities-trace edema bilaterally Her admission labs, EKG and imaging studies reviewed Has atrial fibrillation with RVR status post PPM for tachybradycardia syndrome Started with intravenous heparin and Cardizem drip All of her home medications were continued Cardiology consult Agree with assessment and plan as outlined above by Davina Serna
[2019-06-23] MEDS ORDERED: Heparin IV Low Dose *NO* Bolus IV ONE (19:17)
[2019-06-23] MEDS ORDERED: ACETAMINOPHEN 325 MG TAB PO PRN (19:17)
[2019-06-23 20:52] LABS: Partial Thromboplastin Time 27.6 Seconds (21.0-31.0)
[2019-06-23] MEDS: HEPARIN SODIUM/DEXTROSE 25,000 UNITS/500 ML BAG IV SCH (21:17)
[2019-06-23] MEDS: SOTALOL HCL 80 MG TAB PO SCH (22:03)
[2019-06-23] MEDS: METOPROLOL TARTRATE 50 MG TAB PO SCH (22:04)
[2019-06-24 04:12] LABS: Hematocrit (blood only) 38.2 % (37-47); Hemoglobin 12.4 g/dL (12.0-16.0); Mean Corpuscular Hemoglobin 30.6 pg (25-34); Mean Corpuscular Hgb Conc 32.5 g/dL (32-36); Mean Corpuscular Volume 94.3 fL (80-100); Mean Platelet Volume 9.6 fL (7.4-10.4); Platelet Count 226 K/uL (130-400); RDW Coefficient of Variation 13.9 % (11.5-14.5); RDW Standard Deviation 48.2 fL (36.4-46.3); Red Blood Count 4.05 M/uL (4.2-5.4); White Blood Count 7.43 K/uL (4.8-10.8)
[2019-06-24 04:31] LABS: BUN Creatinine Ratio 20.8 (10-20); Blood Urea Nitrogen 19 mg/dl (7-18); Calcium 8.8 mg/dl (8.5-10.1); Carbon Dioxide 26 mmol/L (21-32); Chloride 110 mmol/L (98-107); Creatinine Clr Calc Pharmacy 44.9 ml/min; Glucose 103 mg/dl (70-99); Potassium 3.7 mmol/L (3.5-5.1); Sodium 141 mmol/L (136-145)
[2019-06-24 04:36] LABS: Troponin I < 0.015 ng/ml (0-0.045)
[2019-06-24 04:46] LABS: Partial Thromboplastin Ratio 1.9
[2019-06-24 05:12] LABS: Partial Thromboplastin Time 51.8 Seconds (21.0-31.0)
[2019-06-24] MEDS: dilTIAZem HCL 125 MG in DEXTROSE 5% 100 ML IV SCH (05:34)
[2019-06-24] MEDS: METOPROLOL TARTRATE 50 MG TAB PO SCH ×2 (08:02→20:35)
[2019-06-24] MEDS: SOTALOL HCL 80 MG TAB PO SCH ×2 (08:02→20:36)
[2019-06-24] MEDS: ATORVASTATIN 20 MG TAB PO SCH (08:28)
[2019-06-24] MEDS: ASPIRIN 81 MG ECTAB PO SCH (08:28)
[2019-06-24] MEDS: LOSARTAN POTASSIUM 25 MG TAB PO SCH (08:28)
[2019-06-24] MEDS: dilTIAZem HCL 240 MG CAPCR PO SCH (13:15)
--- NOTE | 2019-06-24 13:41 | Hospitalist Progress Note ---
Date of Service June 24, 2019 Assessment & Plan (1) Atrial fibrillation with rapid ventricular response: Presented with shortness of breath and lightheadedness Noted to have atrial fibrillation with RVR rate of 130s with occasional paced rhythm at presentation in ER History of spontaneous rectus sheath hematoma with Coumadin in the past and has not been on anticoagulation for that reason Started with intravenous Cardizem drip and heparin drip Initial troponin negative, continue to cycle -negative for any ACS Recent echo 12/2018; defer repeat study to cardiology Rate is controlled now with undetermined rhythm Awaiting cardiology evaluation recommendation (2) Tachy-brenden syndrome: History of tachybradycardia syndrome and atrial fibrillation s/p pacemaker typically managed with metoprolol and sotalol (3) Pacemaker: As above (4) HTN (hypertension): -BP controlled, continue losartan (5) Hyperlipidemia: -Continue statin (6) DVT prophylaxis: -On IV heparin Admission and Anticipated Discharge Date Admission Date: June 23, 2019 Subjective The patient was seen and examined in telemetry unit She remains asymptomatic Denies any palpitation, chest symptoms or shortness of breath Ready to be discharged Review of Systems Review of Systems: All systems reviewed and are unremarkable except as noted below Cardiovascular: + edema (Trace edema bilaterally); no chest pain, no dyspnea, no dyspnea on exertion and no palpitations Physical Exam Physical Exam: Lying in bed comfortably Constitutional: well developed and well nourished; no acute distress and not ill appearing Eyes: PERRL, conjunctivae normal, anicteric sclerae ENMT: external ear and nose normal, oropharynx normal Neck: trachea midline, no thyromegaly Respiratory: normal respiratory effort; no respiratory distress Auscultation: lungs clear to auscultation bilaterally Cardiovascular: Rate/Rhythm: + abnormal rate and + abnormal rhythm Gastrointestinal (Abdomen): Inspection/Auscultation: abdomen normal to inspection Percussion/Palpation: abdomen soft; abdomen nontender Musculoskeletal: No acute arthritis in any joint Lymphatic: no cervical or axillary lymphadenopathy Results & Data Results & Data ([facility]) Vital Signs (Past 12 Hours) Vital Signs Temp Pulse Pulse Resp BP Pulse Ox 06/24/19 11:00 36.5 C 66 16 106/66 98 06/24/19 08:00 64 06/24/19 07:00 36.7 C 67 16 114/69 98 06/24/19 04:24 36.7 C 94 H 17 102/71 97 Laboratory Results Short CBC 06/23/19 06/24/19 Range/Units 15:59 03:41 WBC 6.84 7.43 (4.8-10.8) K/uL Hgb 13.7 12.4 (12.0-16.0) g/dL Hct 42.2 38.2 (37-47) % Plt Count 258 226 (130-400) K/uL BMP 06/23/19 06/24/19 15:59 03:41 Sodium 138 141 Potassium 4.3 3.7 Chloride 104 110 H Carbon Dioxide 26 26 BUN 20 H 19 H Creatinine 1.02 0.93 Glucose 140 H 103 H Calcium 9.1 8.8 Cardiac Enzymes 06/23/19 06/23/19 06/24/19 Range/Units 15:59 20:35 03:41 Troponin I < 0.015 < 0.015 < 0.015 (0-0.045) ng/ml Liver Function 06/23/19 Range/Units 15:59 Total Bilirubin 0.5 (0.2-1) mg/dl AST 23 (15-37) U/L ALT 32 (12-78) U/L Alkaline Phosphatase 93 (45-117) U/L Albumin 3.3 L (3.4-5.0) gm/dl Medications Administered Current Inpatient Medications Acetaminophen (Tylenol) 650 mg PO Q4H PRN PRN Reason: Pain or Fever Stop: 07/23/19 19:16 Aspirin (Ecotrin Ectab) 81 mg PO DAILY [facility] Stop: 07/24/19 08:59 Last Admin: 06/24/19 08:28 Dose: 81 mg Documented by: Atorvastatin Calcium (Lipitor) 20 mg PO DAILY [facility] Stop: 07/24/19 08:59 Last Admin: 06/24/19 08:28 Dose: 20 mg Documented by: Diltiazem HCl (Cardizem Cd) 240 mg PO QAM [facility] Stop: 07/24/19 11:29 Last Admin: 06/24/19 13:15 Dose: 240 mg Documented by: Heparin Sodium/Dextrose (Heparin Sodium/Dextrose) 25,000 units in 500 mls @ 15 mls/hr IV .Q24H [facility]; Protocol Stop: 07/23/19 19:59 Last Titration: 06/24/19 07:07 Dose: 750 units/hr, 15 mls/hr Documented by: Losartan Potassium (Cozaar) 12.5 mg PO DAILY [facility] Stop: 07/24/19 08:59 Last Admin: 06/24/19 08:28 Dose: 12.5 mg Documented by: Metoprolol Tartrate (Lopressor) 50 mg PO BID [facility] Stop: 07/23/19 20:59 Last Admin: 06/24/19 08:02 Dose: 50 mg Documented by: Sotalol HCl (Betapace) 80 mg PO BID [facility] Stop: 07/23/19 20:59 Last Admin: 06/24/19 08:02 Dose: 80 mg Documented by:
--- NOTE | 2019-06-24 14:59 | Cardiology Consultation ---
Date of Consultation June 24, 2019 Assessment & Plan (1) Atrial fibrillation with rapid ventricular response: The pathophysiology and treatment options for atrial fibrillation were once again reviewed with Mrs. Bustillos. She was counseled given the fact that we are unable to anticoagulate and that she is already on sotalol as an antiarrhythmic I believe the most prudent course of action at this point will be to start her on oral Cardizem and attempt to suppress further episodes of atrial fibrillation. She is always responded well to Cardizem in the past my hope is that with the addition of this on top of her sotalol and metoprolol though will have greater luck keeping her in sinus rhythm. She states that she agrees with this plan. We will continue to monitor on telemetry overnight tonight. She has been started on low-dose heparin without any signs of bleeding and will be continued for now but oral anticoagulation will not be started. (2) Tachy-brenden syndrome: Device functioning appropriately with an atrially paced rhythm Most recent device interrogation shows a 1% A. fib burden with longest episode lasting 2 hours (3) GI bleeding: History of rectal sheath bleeding that was life threatening No longer an anticoagulation candidate. History of Present Illness Reason for Consultation: Dr. Serna Requesting Physician: symptomatic afib with rvr Attending Physician: Prakash Serna MD History of Present Illness It was my pleasure to see Mrs. Bustillos in consultation today June 24, 2019. She is a very pleasant 83-year-old woman who normally follows with Dr. Eid of our cardiology practice. She presented to [facility] emergency department on 06/23/2019 at the advice of our office after she called in with complaints of shortness of breath and lightheadedness. The patient states that she woke up at approximately 3 AM not feeling well. She had a sensation that she was back in atrial fibrillation noting that she was lightheaded and having difficulty standing up from the bed. Her Fitbit showed her that her heart rates were in the 120s to 140s. She became concerned called our office and was directed to the ER. Upon arrival emergency department she was given IV Cardizem with improvements of rates. She was started on low-dose heparin and admitted to telemetry. She spontaneously converted to an atrially paced rhythm overnight and states that since then she has been feeling well. She notes that she has been taking her medications as directed without issue and otherwise feeling well as of late. Allergies Allergy/AdvReac Type Severity Reaction Status Date / Time codeine Allergy Severe ANAPHYLAXIS Verified 06/23/19 16:38 nitrofurantoin Allergy Severe SWELLING Verified 06/23/19 16:38 AND HIVES nitroglycerin AdvReac Intermediate SHORTNESS Verified 06/23/19 16:38 OF BREATH Home Medications Home Medications Medication Instructions Recorded Confirmed Type aspirin [Aspir-81] 81 mg PO DAILY 01/11/19 06/23/19 History atorvastatin [Lipitor] 20 mg PO DAILY 01/11/19 06/23/19 History losartan [Cozaar] 12.5 mg PO DAILY 01/11/19 06/23/19 History sotalol [Betapace] 80 mg PO BID 01/11/19 06/23/19 History metoprolol tartrate 50 mg PO BID #60 tab 01/13/19 06/23/19 Rx Patient History Medical History CKD (chronic kidney disease), stage III (Chronic) Depressive disorder (Chronic) History of basal cell carcinoma (Chronic) History of squamous cell carcinoma (Chronic) HTN (hypertension) (Chronic) Hyperlipidemia (Chronic) Pacemaker (Chronic 06/25/13) "dual chamber pacemaker insertion 06/25/13 Dr. Serrano at [facility]" Paroxysmal atrial fibrillation (Chronic) Tachy-brenden syndrome (Chronic) "s/p dual chamber pacemaker insertion 06/25/13 Dr. Serrano at [facility]" Surgical History History of appendectomy (Chronic) History of cataract surgery (Chronic) History of cholecystectomy (Chronic) History of meniscectomy of right knee (Chronic) History of tonsillectomy (Chronic) History of total hysterectomy (Chronic) Family History Mother Breast cancer Father Heart disease Social History Preferred Language: Wallisian Communication Ability: Effective Business Improvement Manager Required: No Beliefs That Will Affect Care: None Current Living Situation: Spouse Other Information That Helps Us Care for You: No Feels Safe at Home: Yes Safety Concerns: Feels Safe At This Time Smoking Status: Never smoker Hx Alcohol Use: No Hx Substance Use: No Review of Systems Review of Systems: All systems reviewed & are unremarkable except as noted in HPI & below Physical Exam Physical Exam: General: Awake, alert and oriented x 3. No acute distress. HEENT: Normocephalic, atraumatic. Pupils equal, round and reactive to light and accommodation. Extraocular muscles are intact. Anicteric sclera. Moist mucous membranes. Neck: No JVD. No bruit. Cardiovascular: Regular. Positive S-4. Normal S-1 and S-2. No S-3. No murmurs or rubs. Pulmonary: Clear to auscultation B/L. No rales, rhonchi or wheezing Abdomen: Bowel sounds x 4, soft. No rebound, guarding or tenderness. No organomegaly. Extremities: No clubbing, cyanosis or edema. +2 pedal pulses bilaterally. Skin: Warm and dry. Results & Data ([facility]) Vital Signs (Past 12 Hours) Vital Signs Temp Pulse Pulse Resp BP Pulse Ox 06/24/19 11:00 36.5 C 66 16 106/66 98 06/24/19 08:00 64 06/24/19 07:00 36.7 C 67 16 114/69 98 06/24/19 04:24 36.7 C 94 H 17 102/71 97
--- NOTE | 2019-06-24 15:02 | Electrocardiogram Report ---
Test Reason : Blood Pressure : / mmHG Vent. Rate : 104 BPM Atrial Rate : 125 BPM P-R Int : 000 ms QRS Dur : 128 ms QT Int : 328 ms P-R-T Axes : 000 -44 110 degrees QTc Int : 431 ms Poor data quality, interpretation may be adversely affected Atrial fibrillation with rapid ventricular response with frequent AV dual-paced complexes Left axis deviation Non-specific intra-ventricular conduction block Cannot rule out Septal infarct , age undetermined T wave abnormality, consider lateral ischemia Abnormal ECG When compared with ECG of 12-JAN-2019 15:06, Atrial fibrillation is now Present Vent. rate has increased BY 41 BPM Confirmed by Diaz Talavera ([id number]) on 06/24/2019 3:01:51 PM Referred By: Confirmed By:Diaz Talavera
[2019-06-24] MEDS: HEPARIN SODIUM/DEXTROSE 25,000 UNITS/500 ML BAG IV SCH (20:31)
[2019-06-25 06:34] LABS: Hematocrit (blood only) 38.2 % (37-47); Hemoglobin 12.3 g/dL (12.0-16.0); Mean Corpuscular Hemoglobin 30.4 pg (25-34); Mean Corpuscular Hgb Conc 32.2 g/dL (32-36); Mean Corpuscular Volume 94.6 fL (80-100); Mean Platelet Volume 9.1 fL (7.4-10.4); Platelet Count 226 K/uL (130-400); RDW Standard Deviation 48.6 fL (36.4-46.3); Red Blood Count 4.04 M/uL (4.2-5.4); White Blood Count 6.92 K/uL (4.8-10.8)
[2019-06-25 06:57] LABS: Partial Thromboplastin Ratio 2.4
[2019-06-25 07:00] LABS: Partial Thromboplastin Time 66.1 Seconds (21.0-31.0)
[2019-06-25] MEDS: dilTIAZem HCL 240 MG CAPCR PO SCH (07:12)
[2019-06-25] MEDS: METOPROLOL TARTRATE 50 MG TAB PO SCH (07:12)
[2019-06-25] MEDS: LOSARTAN POTASSIUM 25 MG TAB PO SCH (07:12)
[2019-06-25] MEDS: SOTALOL HCL 80 MG TAB PO SCH (07:12)
[2019-06-25] MEDS: ASPIRIN 81 MG ECTAB PO SCH (07:12)
[2019-06-25] MEDS: ATORVASTATIN 20 MG TAB PO SCH (07:13)
--- NOTE | 2019-06-25 12:54 | Cardiology Progress Note ---
Date of Service June 25, 2019 Assessment & Plan (1) Atrial fibrillation with rapid ventricular response: No recurrences since addition of oral Cardizem. We will continue Cardizem 240 mg p.o. daily along with her outpatient regimen of metoprolol and sotalol. Patient has previously been deemed not an anticoagulation candidate due to significant bleeding but has tolerated 48 hours of heparin without sign of bleeding during this admission. We will not start oral anticoagulation at this time. Okay to discharge home from a cardiac standpoint. My office will arrange follow-up in 2 to 4 weeks. (2) Tachy-brenden syndrome: Device functioning appropriately with an atrially paced rhythm Most recent device interrogation shows a 1% A. fib burden with longest episode lasting 2 hours (3) GI bleeding: History of rectal sheath bleeding that was life threatening No longer an anticoagulation candidate. Subjective Patient seen and examined resting comfortably in bed without complaint. States that she feels well and has not had any recurrence of presenting symptoms. Tolerating addition of oral Cardizem without issue. Denies any chest pain, shortness of breath, palpitations, lightheadedness, dizziness or syncope. Telemetry reviewed: Atrially paced rhythm. Review of Systems Review of Systems: All systems reviewed & are unremarkable except as noted in HPI & below Physical Exam Physical Exam: General: Awake, alert and oriented x 3. No acute distress. HEENT: Normocephalic, atraumatic. Pupils equal, round and reactive to light and accommodation. Extraocular muscles are intact. Anicteric sclera. Moist mucous membranes. Neck: No JVD. No bruit. Cardiovascular: Regular. Positive S-4. Normal S-1 and S-2. No S-3. No murmurs or rubs. Pulmonary: Clear to auscultation B/L. No rales, rhonchi or wheezing Abdomen: Bowel sounds x 4, soft. No rebound, guarding or tenderness. No organomegaly. Extremities: No clubbing, cyanosis or edema. +2 pedal pulses bilaterally. Skin: Warm and dry. Results & Data Vital Signs (Past 12 Hours) Vital Signs Temp Pulse Pulse Pulse Resp BP Pulse Ox 06/25/19 11:07 36.8 C 65 20 127/74 98 06/25/19 07:34 36.5 C 18 150/70 H 99 06/25/19 07:20 61 06/25/19 03:58 36.4 C L 62 18 148/79 H 99
--- NOTE | 2019-06-25 13:43 | Discharge Summary ---
Date of Service June 25, 2019 Admission HPI Per Admitting Provider 83-year-old female who presents the ED for evaluation of shortness of breath and tachycardia. Patient with history of tachybradycardia syndrome and atrial fibrillation s/p pacemaker. Patient reports that she awoke in the middle the night and she had some shortness of breath however she was able to fall back to sleep. When she got up this morning, she felt lightheaded with ambulation and also has shortness of breath. She has a home blood pressure and heart rate monitor and when checked, her heart rate was in the 120s. She called her [facility] office who recommended she come to the ED for further evaluation. Patient reports she otherwise been feeling well recently. Reports compliance with all medications. She denies chest pain and palpitations. No dizziness, diaphoresis, syncopal event. She denies orthopnea and lower extremity edema. No other recent illnesses, fevers, chills. She denies abdominal pain or nausea. No urinary symptoms. In the ED, patient was found to be in atrial fibrillation with RVR with heart rates in the 130s at times. She was given diltiazem 50 mg IV bolus followed by drip. Heart rates have improved however she remains in atrial fibrillation. Labs are unremarkable. Admission Exam Per Admitting Provider Physical Exam: Lying in bed comfortably Constitutional: well developed and well nourished; no acute distress and not ill appearing Eyes: PERRL, conjunctivae normal, anicteric sclerae ENMT: external ear and nose normal, oropharynx normal Neck: trachea midline, no thyromegaly Respiratory: normal respiratory effort; no respiratory distress Auscultation: lungs clear to auscultation bilaterally Cardiovascular:Regular, No murmur Gastrointestinal: abdomen normal to inspection Percussion/Palpation: abdomen soft; abdomen nontender Musculoskeletal: No acute arthritis in any joint Lymphatic: no cervical or axillary lymphadenopathy Principal Diagnosis Atrial fibrillation with rapid ventricular response: Tachy-brenden syndrome: Pacemaker: HTN (hypertension): Hyperlipidemia: Discharge Exam Constitutional: WD/WN, vitals as above Eyes: PERRL, conjunctivae normal, anicteric sclerae ENMT: external ear and nose normal, oropharynx normal Respiratory: normal respiratory effort, lungs clear to auscultation Cardiovascular: Rate/Rhythm: + tachycardic and + irregularly irregular Vessels: normal peripheral pulses Extremities: no edema Gastrointestinal (Abdomen): normal bowel sounds, soft, nontender, no hepatosplenomegaly Musculoskeletal: no cyanosis or clubbing, extremities motor strength 5/5 Skin: no rashes, warm and dry Neurologic: PERRL, EOMI, accommodation nl, no face palsy, no dysarthria Psychiatric: A+Ox3, euthymic affect Discharge Data Allergies Allergy/AdvReac Type Severity Reaction Status Date / Time codeine Allergy Severe ANAPHYLAXIS Verified 06/23/19 16:38 nitrofurantoin Allergy Severe SWELLING Verified 06/23/19 16:38 AND HIVES nitroglycerin AdvReac Intermediate SHORTNESS Verified 06/23/19 16:38 OF BREATH Consultations 06/23/19 17:53 ED Decision to Admit Stat 06/23/19 19:17 Consult Cardiology Routine Ordered Studies XR chest 1V portable CLINICAL HISTORY: lightheaded COMPARISON STUDY: Chest radiograph January 11, 2019. FINDINGS: Left subclavian pacemaker is unchanged in position. There is moderate cardiomegaly without evidence for pulmonary edema. No consolidation is identified. The appearance of the chest is unchanged. IMPRESSION: No acute cardiopulmonary findings. No change in appearance of the chest. ACT 112: Negative or not required by law. Electronically signed by: Refugio Cherry M.D. 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 EF 60-65 % Rate controlled on Sotalol, Cardizem and metoprolol Case discussed with cardiology and recommended to continue Cardizem 240 mg PO heparin drip was discontinued No anticoagulant on discharge as per cardio due to hx of GI bleed with coumadin Ok from cardiology standpoint to discharge home Follow up with cardiology in 2 to 4 weeks (2) Tachy-brenden syndrome: History of tachybradycardia syndrome and atrial fibrillation s/p pacemaker typically managed with metoprolol and sotalol (3) Pacemaker: As above (4) HTN (hypertension): -BP controlled, continue losartan (5) Hyperlipidemia: -Continue statin (6) DVT prophylaxis: -On IV heparin during hospital course Total Time Total Time Spent Total Time Spent (In Minutes): 35 minutes Total Time Includes: Examination of the Patient, Discharge Planning, Medication Reconciliation, Communication With Other Providers and Other Discharge Plan Discharge Items Patient Disposition: Home - Self-Care Reason For Visit: AFIB RVR Discharge Diagnosis: Atrial fibrillation with rapid ventricular response: Tachy-brenden syndrome: Pacemaker: HTN (hypertension): Hyperlipidemia: Condition on Discharge: Good Activity: Resume your previous activity Non-emergency contact: Primary Care Provider Call non-emergency contact if: you have any medication questions Follow-up/Referrals: Eddie Graves MD [Primary Care Provider] - 07/01/19 11:00 am Diet: Heart Healthy Addtl Attending Provider Instructions: Follow up with your primary care provider Dr. Graves on 06/30 @ 11AM Follow up with Cardiology in 2 to 4 weeks (Office will call you for the appointment) Pending Studies at Discharge: No Stand-Alone Forms: My [facility] [employer], Smoking Cessation Medications and DC Order Prescriptions: New diltiazem HCl 240 mg Capsule,Extended Release 24hr 240 mg PO QAM 30 Days Qty: 30 RF: 0 Continued atorvastatin [Lipitor] 40 mg tablet 20 mg PO DAILY RF: 0 sotalol [Betapace] 80 mg tablet 80 mg PO BID RF: 0 aspirin [Aspir-81] 81 mg Tablet,Delayed Release (Dr/Ec) 81 mg PO DAILY RF: 0 losartan [Cozaar] 25 mg tablet 12.5 mg PO DAILY RF: 0 metoprolol tartrate 50 mg tablet 50 mg PO BID Qty: 60 RF: 0 Discharge Orders: Discharge Order (Routine); Ordered 06/25/19 Ordered By: Radha Liz Admission Data Admit Date/Time: 06/23/19 18:03 Attending Provider: Radha Liz Admit Provider: Janis Connors Primary Care Provider: Eddie Graves Other Providers: Prakash Serna ; Chandler Marshall
--- NOTE | 2019-06-25 14:40 | Electrocardiogram Report ---
Test Reason : Blood Pressure : / mmHG Vent. Rate : 074 BPM Atrial Rate : 227 BPM P-R Int : 000 ms QRS Dur : 138 ms QT Int : 478 ms P-R-T Axes : 000 -39 106 degrees QTc Int : 530 ms Atrial fibrillation Intermittent V pacing appropriate Intermittent atrial pacing suggests atrial undersensing Left axis deviation Left bundle branch block Abnormal ECG When compared with ECG of 23-JUN-2019 15:40, (unconfirmed) HR has decreased Confirmed by Diaz Talavera ([id number]) on 06/25/2019 2:40:03 PM Referred By: REFERRED SELF Confirmed By:Diaz Talavera
--- NOTE | 2019-06-26 10:28 | Electrocardiogram Report ---
Test Reason : Blood Pressure : / mmHG Vent. Rate : 065 BPM Atrial Rate : 065 BPM P-R Int : 214 ms QRS Dur : 140 ms QT Int : 494 ms P-R-T Axes : 066 -46 097 degrees QTc Int : 513 ms Atrial-paced rhythm with prolonged AV conduction Left axis deviation Left bundle branch block Abnormal ECG When compared with ECG of 24-JUN-2019 06:27, (unconfirmed) Atrial fibrillation is no longer Present Confirmed by Diaz Talavera ([id number]) on 06/26/2019 10:28:32 AM Referred By: REFERRED SELF Confirmed By:Diaz Talavera
== END 2019-06-25 14:31 | disposition home or self-care (01) | DRG 310 ==
LOC: ED 15:34 → SUATTDRO 18:03 → 2S 18:03